=== PATIENT | female | born 1990 | race Two or more races ===

== ENCOUNTER 2018-10-14 16:43 | Emergency (ER) | payer MEDICAID, OTHER ==
[~2018-10-14] VITALS: Ht 165.1 cm; Wt 59.0 kg
[2018-10-14 18:04] LABS: Urine Bacteria FEW /hpf (None Seen); Urine Blood Negative /uL (Negative); Urine Mucus FEW (None Seen); Urine Specific Gravity 1.033 (1.001-1.035); Urine WBC 22 /hpf (0 - 5)
[2018-10-14 19:15] LABS: Partial Thromboplastin Time 27.2 sec (23.78-33.04); Prothrombin Time 10.7 sec (9.27-12.13)
[2018-10-14 19:19] LABS: Basophils # (auto) 0 uL; Basophils % (auto) 0.4 % (0.0-2.0); Eosinophils # (auto) 0.1 uL; Hemoglobin 12.2 g/dL (12.2-16.2); Neutrophils # (auto) 5.1 uL
[2018-10-14 19:21] LABS: Eosinophils % (auto) 0.9 % (0.0-7.0); Hematocrit 38.3 % (36.0-46.0); Lymphocytes # (auto) 1.8 uL; Lymphocytes % (auto) 23.5 % (10.0-50.0); Mean Corpuscular Hgb Conc. 31.9 g/dL (32.0-36.0); Mean Corpuscular Volume 81.6 fL (80.0-100.0); Monocytes # (auto) 0.5 uL; Monocytes % (auto) 7.2 % (0.0-12.0); Platelet Count (auto) 338 10^3/uL (140-450); Red Blood Cells 4.69 10^6/uL (4.0-5.20); Red Cell Distribution Width 16.5 % (11.8-14.3); White Blood Cell 7.5 10^3/uL (4.4-10.8)
[2018-10-14 19:22] LABS: Albumin 4.1 g/dL (3.4-5.0); Calcium 8.7 mg/dL (8.5-10.1); Potassium 3.9 mmol/L (3.5-5.1)
[2018-10-14 19:25] LABS: BUN/Creatinine Ratio 15.4; Bilirubin, Total 0.9 mg/dL (0.2-1.0); Total Protein 7.9 g/dL (6.4-8.2)
[2018-10-14] MEDS ORDERED: SODIUM CHLORIDE 0.9% 1,000 ML IVB ONE (21:45)
[2018-10-14] MEDS ORDERED: PROMETHAZINE HCL 25 MG/ML 1ML IV PRN (21:45)
[2018-10-14] MEDS ORDERED: KETOROLAC TROMETH 30 MG/ML 1ML VIAL IV ONE (21:45)
[2018-10-14] MEDS ORDERED: SODIUM CHLORIDE 0.9% 1,000 ML IV ONE (22:45)
[2018-10-14] MEDS ORDERED: ONDANSETRON ODT 4 MG TAB PO ONE (22:45)
[2018-10-14] MEDS ORDERED: PROMETHAZINE HCL 25 MG/ML 1ML IV ONE (22:45)
[2018-10-15 01:05] VITALS: BP 126/62
== END 2018-10-15 01:25 | disposition home or self-care (01) ==
LOC: ER 16:48
DX: N20.0 Calculus of kidney (principal); N39.0 Urinary tract infection, site not specified
CPT/HCPCS: 36415; 74176; 80053; 81001; 84702; 85025; 85610; 85730; 94761; 96361; 96374; 96375; 99284; J1885; J2550; J7030

== ENCOUNTER 2024-07-27 13:20 | Emergency (ER) | payer MEDICAID ==
[~2024-07-27] VITALS: Ht 165.1 cm; Wt 75.0 kg
[2024-07-27 14:22] VITALS: BP 116/69; PULSE 87; RESP 18; TEMP 98.3; O2SAT 100
--- NOTE | 2024-07-27 14:36 | ED.PDOC ---
Back pain HPI HPI Comments A 33 YEAR OLD FEMALE PRESENTS TO THE ED WITH COMPLAINT OF LOWER BACK PAIN THAT RADIATES DOWN RIGHT LEG. PATIENT STATES SHE HAS A HISTORY OF CHRONIC LOWER BACK PAIN DUE TO AN EPIDURAL INJECTION AND BULGING DISC 1 YEAR AGO, AND HAS BEEN EXPERIENCING LOWER BACK PAIN THAT RADIATES DOWN HER RIGHT LEG FOR THE PAST 1 WEEK. PATIENT DENIES SADDLE ANESTHESIA, URINARY INCONTINENCE, BOWEL INCONTINENCE, FEVER, CHILLS, SHORTNESS OF BREATH, CHEST PAIN, ABDOMINAL PAIN, NAUSEA, VOMITING, HEADACHE, OR OTHER COMPLAINTS. NO OTHER SYMPTOMS OR MODIFYING FACTORS AT THIS TIME. PATIENT IS ALERT, ORIENTED X 4, AND HAS STEADY GAIT. Chief Complaint: Back Pain Time Seen by MD: 13:21 Primary Care Provider: [facility] Notes: Nurses Notes, Medications, Allergies Allergies: Coded Allergies: NO KNOWN ALLERGIES (Unverified , 10/14/18) Home Meds Active Scripts Tramadol HCl (Tramadol HCl) 50 Mg Tab, 50 MG PO BID, #20 TAB Prov:ANAYELI PAINTING 07/27/24 Prednisone (Prednisone) 20 Mg Tab, 40 MG PO DAILY, #20 TAB Prov:ANAYELI PAINTING 07/27/24 Information Source: Patient Mode of Arrival: Wheelchair Timing: Days Duration: Since onset, Days Location of Back pain: (B) Lumbar Radiates to: Anterior: (R) Buttocks, (R) Calf, (R) Thigh Radiates to: Posterior: (R) Buttocks, (R) Calf, (R) Thigh Radiates to: Medial: (R) Buttocks, (R) Calf, (R) Thigh Radiates to: Lateral: (R) Buttocks, (R) Calf Severity: Moderate Prehospital treatment: None Quality: Aching, Burning, Cramping Onset: Spontaneous History of: Chronic Back Pain Modifying Factors: Movement Associated signs and symptoms: None Past Medical History Past Medical History (Other): CHRONIC LOWER BACK PAIN/DDD Surgical History: Denies all surgeries GENERAL WORKER History: No Pertinent GENERAL WORKER History Family History Family History: No family hx of HTN Social History Smoker: Non-Smoker Alcohol: Denies ETOH Use Drugs: Denies Drug Use Lives In: Home Constitutional: denies: chills, diaphoresis, fatigue, fever, malaise, sweats, weakness, others EENTM: denies: blurred vision, double vision, ear bleeding, ear discharge, ear drainage, ear pain, ear ringing, eye pain, eye redness, hearing loss, mouth pain, mouth swelling, nasal discharge, nose bleeding, nose congestion, nose pain, photophobia, tearing, throat pain, throat swelling, voice changes, others Respiratory: denies: cough, hemoptysis, orthopnea, SOB at rest, shortness of breath, SOB with excertion, stridor, wheezing, others Cardiovascular: denies: chest pain, dizzy spells, diaphoresis, Dyspnea on exertion, edema, irregular heart beat, left arm pain, lightheadedness, palpitations, PND, syncope, others Gastrointestinal: denies: abdomen distended, abdominal pain, blood streaked bowels, constipated, diarrhea, dysphagia, difficulty swallowing, hematemesis, melena, nausea, poor appetite, poor fluid intake, rectal bleeding, rectal pain, vomiting, others Genitourinary: denies: abnormal vagina bleeding, burning, dyspareunia, dysuria, flank pain, frequency, hematuria, incontinence, pain, , vagina discharge, urgency, others Neurological: denies: dizziness, fainting, headache, left sided numbness, left sided weakness, numbness, paresthesia, pre-existing deficit, right sided numbne ss, right sided weakness, seizure, speech problems, tingling, tremors, weakness, others Musculoskeletal: reports: back pain (LOWER BACK PAIN THAT RADIATES DOWN RIGHT LEG), muscle pain; denies: gout, joint pain, joint swelling, muscle stiffness, neck pain, others Integumetry: denies: bruises, change in color, change in hair/nails, dryness, laceration, lesions, lumps, rash, wounds, others Allergic/Immunocompromised: denies: Difficulty Healing, Frequent Infections, Hives, Itching, others Hematologic/Lymphatic: denies: anemia, blood clots, easy bleeding, easy bruising, swollen glands, others Endocrine: denies: excessive hunger, excessive sweating, excessive thirst, excessive urination, flushing, intolerance to cold, intolerance to heat, u nexplained weight gain, unexplained weight loss, others Psychiatric: denies: anxiety, bipolar disorder, depression, hopeless, panic disorder, schizophrenia, sleepless, suicidal, others All Other Systems: Reviewed and Negative Physical Exam General Appearance: No Apparent Distress, Normal, Other (ANXIOUS ) HEENT: Normal ENT Inspection, PERRL/EOMI, Pharynx Normal, TMs Normal Neck: Full Range of Motion, Non-Tender, Normal, Normal Inspection Respiratory: Chest Non-Tender, Lungs Clear, No Accessory Muscle Use, No Respiratory Distress, Normal Breath Sounds Cardiovascular: No Edema, No JVD, No Murmur, No Gallop, Normal Peripheral Pulses, Regular Rate/Rhythm Breast Exam: Deferred Gastrointestinal: No Organomegaly, Non Tender, No Pulsatile Mass, Normal Bowel Sounds, Soft Genitalia: Deferred Pelvic: Deferred Rectal: Deferred Extremities: No calf tenderness, Normal capillary refill, Normal inspection, Normal range of motion, Non-tender, No pedal edema Musculoskeletal : Location: Bilateral Extremity Location: Back Apperance: Tenderness: Moderate (MUSCLE SPASM ON LOWER BACK, NO BONY TENDERNESS, SWELLING AND DEFORMITY. ) Neurologic: Alert, solutions sales consultant II-XII nml as Tested, No Motor Deficits, Normal Affect, Normal Mood, No Sensory Deficits Cerebellar Function: Normal Reflexes: Normal Skin: Dry, Normal Color, Warm Peripheral Pulses: 2+ carotid (R), 2+ carotid (L), 2+ dorsalis pedis (R), 2+ dorsalis pedis (L) Lymphatic: No Adenopathy Was a procedure done? Was a procedure done?: No Back Pain Differential Dx Differential Diagnosis: DJD, Musculoskeletal Pain, Strain Other Differential Diagnosis DDD, LUMBAR RADICULOPATHY X-Ray, Labs, Meds, VS Vital Signs Date Time Temp Pulse Resp B/P (MAP) Pulse Ox O2 Delivery O2 Flow Rate FiO2 07/27/24 14:22 87 18 100 Room Air 07/27/24 14:22 98.3 87 18 116/69 (85) 100 98.3 07/27/24 13:48 98.3 87 18 116/69 (85) 100 Current Medications Medications (Trade) Dose Ordered Sig/Yg Route Start Time Stop Time Status Last Admin Ketorolac Tromethamine (Toradol Injection) 60 mg ONCE ONCE IM 07/27/24 14:30 07/27/24 14:31 DC 07/27/24 14:38 Acetaminophen/ Hydrocodone Bitart (Bucklin 10/325MG Tab) 1 tab ONCE ONCE PO 07/27/24 14:30 07/27/24 14:31 DC 07/27/24 14:38 X-Ray, Labs, Meds, VS Comment EXTERNAL MEDICAL RECORDS REVIEWED: [NONE] INDEPENDENT HISTORIANS: [NONE] SOCIAL DETERMINANTS OF HEALTH: [NONE] LABS ORDERED: NONE REVIEWED AND INTERPRETED RESULTS: NONE IMAGING ORDERED: NONE BASED ON THE PATIENT'S PERSISTENCE OF SYMPTOMS, THE PATIENT SOUGHT OUT ED CONSULT. BASED ON MY PHYSICAL EXAMINATION AND PATIENT'S HISTORY OF CHRONIC BACK PAIN, THERE IS NO NEW INJURY TO THE PATIENT'S BACK. THE PATIENT DENIES ANY NUMBNESS, WEAKNESS, TINGLING SENSATION, URINARY/BOWEL INCONTINENCE. THERE ARE NO SIGNS AND SYMPTOMS OF CAUDA EQUINA. THE PATIENT STATES THAT THE PAIN IS THE SAME WHEN THEY HAVE BACK PAIN FLARE-UP AND THAT THEY ONLY NEED PAIN MEDICATION IN THE ER. AT THIS POINT, THERE IS NO INDICATION FOR ANY IMAGING. THE PATIENT WAS ADVISED TO FOLLOW UP WITH ORTHO SPECIALIST FOR THEIR CHRONIC LOWER BACK PAIN AND PAIN MANAGEMENT DOCTOR FOR PAIN CONTROL. PATIENT WAS GIVEN TORADOL 60MG IM AND NORCO 10/325MG PO FOR PAIN MEDICATION. OVERALL PATIENT'S VITAL SIGNS ARE STABLE AND THE PATIENT WILL BE DISCHARGED HOME. TREATMENTS ORDERED: TORADOL 60 MG IM, NORCO 10/325 MG P.O. PROCEDURES PERFORMED: NONE CRITICAL CARE TIME: NONE I HAVE DISCUSSED THE PATIENT WITH THE ATTENDING PHYSICIAN DR. RUIZ AND HE AGREES WITH THE PATIENT'S PLAN OF CARE AND DISPOSITION. BASED ON HISTORY OF PRESENT ILLNESS, AND PHYSICAL EXAM, PATIENT WILL BE DISCHARGED HOME. DISCUSSED PLAN FOR DISCHARGE HOME WITH RX [ULTRAM AND PREDNISONE]. MEDICATION WARNINGS GIVEN. SHARED DECISION MAKING: PATIENT INSTRUCTED TO FOLLOW UP WITH PRIMARY CARE PROVIDER IN 1-2 DAYS FOR RE-EVALUATION OF SYMPTOMS. PATIENT VERBALIZES UNDERSTANDING TO RETURN TO ED FOR NEW OR WORSENING SYMPTOMS OR IF FOLLOW UP WITH PCP CANNOT BE OBTAINED. PATIENT FEELS COMFORTABLE GOING HOME AT THIS TIME. ALL QUESTIONS ADDRESSED AT TIME OF DISCHARGE. Time of 1ST Reevaluation: 15:00 Reevaluation 1ST: Improved Patient Education/Counseling: Diagnosis, Treatment, Need For Follow Up Family Education/Counseling: Diagnosis, Treatment, Need For Follow Up Medical Screening: No EMC Exist At This Time Departure 1 Departure Time of Disposition: 15:00 Impression: Primary Impression: Acute exacerbation of chronic low back pain Additional Impression: Pain management Disposition: 01 HOME / SELF CARE / HOMELESS Condition: Stable Additional Instructions: FOLLOW-UP WITH PCP IN 1 TO 2 DAYS. TAKE MEDICATIONS PRESCRIBED. RETURN TO ED FOR ANY NEW OR WORSENING SYMPTOMS. e-Prescriptions Tramadol HCl (Tramadol HCl) 50 Mg Tab 50 MG PO BID, #20 TAB Prov: ANAYELI PAINTING 07/27/24 Prednisone (Prednisone) 20 Mg Tab 40 MG PO DAILY, #20 TAB Prov: ANAYELI PAINTING 07/27/24 Discharged With: Self, Spouse Critical Care Note Critical Care Time?: No Stability Stability form required: No I personally scribed for ANAYELI PAINTING ([email or web address]) on 07/27/24 at 14:35. Electronically submitted by Avery Aguilar ([email or web address]). I personally scribed for ANAYELI PAINTING ([email or web address]) on 07/27/24 at 14:43. Electronically submitted by Avery Aguilar ([email or web address]). ANAYELI PAINTING Jul 27, 2024 14:35
[2024-07-27] MEDS: KETOROLAC TROMETH 60MG/2ML VIAL IM ONE (14:38)
[2024-07-27] MEDS: HYDROcodone-ACET 10/325MG TAB PO ONE (14:38)
[2024-07-27] MEDS ORDERED: PRED20TA2 PO (14:46)
[2024-07-27] MEDS ORDERED: TRAM-626 PO (14:46)
== END 2024-07-27 14:55 | disposition home or self-care (01) ==
LOC: ER 13:20
DX: G89.29 Other chronic pain (principal); M54.50 Low back pain, unspecified; Z79.52 Long term (current) use of systemic steroids; Z79.899 Other long term (current) drug therapy
CPT/HCPCS: 96372; 99283; J1885

== ENCOUNTER 2025-05-18 02:24 | Inpatient (IN) | payer MEDICAID ==
[~2025-05-18] VITALS: Ht 167.6 cm; Wt 79.7 kg
[~2025-05-18 02:24] MED LIST: PRED20TA2 PO; TRAM-626 PO
--- NOTE | 2025-05-18 02:43 | ED.PDOC ---
History of Present Illness HPI Comments 34-year-old female who came to ER for vaginal bleeding. Patient has been having present on bleeding for a month, constant, daily vaginal bleeding consuming 4 pads per day with the occasional clots. One-week ago patient has started experiencing dizziness as well, and few hours ago she has started having left lower quadrant abdominal pain, "cloudy" vision and sensation of "coldness". Patient has not sought consult regarding this vaginal bleeding that lasted a month. Patient denies having prior vaginal bleeding lasting this long. Denies any possibility fo REVIEW OF SYSTEMS: General: No fever, no chills, or fatigue HEENT: No sore throat, no earache, no congestion, no neck pain. Cardiac: No chest pain. No palpitations. Lungs: No shortness of breath, no cough. GI: No nausea, no vomiting, no diarrhea, no constipation, (+) abdominal pain : No dysuria, frequency, or urgency. No hematuria. (+) vaginal bleeding Musculoskeletal: No joint pain , no joint swelling, no extremity edema. Skin: No rash, no itching. Neuro: No headache, (+) dizziness, no weakness EXAM: General: Awake, alert and oriented. No acute distress. Skin: Skin in warm, dry and intact. Appropriate color for ethnicity. HEENT: The head is normocephalic and atraumatic. Conjunctivae are clear without exudates or hemorrhage. Sclera is non-icteric. EOM are intact. No signs of nystagmus. Eyelids are normal in appearance without swelling or lesions. Oral mucosa is pink and moist Neck: The neck is supple with normal range of motion. No JVD. Cardiac: Heart rate and rhythm are normal. No murmurs, gallops, or rubs are auscultated. Respiratory: No signs of respiratory distress. Lung sounds are clear in all lobes bilaterally without rales, rhonchi, or wheezes. Abdominal: Abdomen is soft, non-tender without distention. Bowel sounds are present and normoactive in all four quadrants. Extremities: Upper and lower extremities are atraumatic in appearance without deformity or edema. Neurological: The patient is awake, alert and oriented to person, place, and time with normal speech. Speech is clear. There is no facial asymmetry. Psychiatric: Appropriate mood and affect. Good judgement and insight Chief Complaint: Vaginal Bleed Time Seen by MD: 02:43 Primary Care Provider: [facility] Notes: Nurses Notes Allergies: Coded Allergies: NO KNOWN ALLERGIES (Unverified , 10/14/18) Home Meds Active Scripts Tramadol HCl (Tramadol HCl) 50 Mg Tab, 50 MG PO BID, #20 TAB Prov:ANAYELI PAINTING 07/27/24 Prednisone (Prednisone) 20 Mg Tab, 40 MG PO DAILY, #20 TAB Prov:ANAYELI PAINTING 07/27/24 Information Source: Patient Mode of Arrival: Ambulatory Past Medical History PAST MEDICAL HISTORY: Anemia Surgical History: Denies all surgeries SCIENTIFIC SYSTEMS ANALYST History: No Pertinent SCIENTIFIC SYSTEMS ANALYST History Family History Family History: No family hx of HTN Social History Smoker: Non-Smoker Alcohol: Denies ETOH Use Drugs: Denies Drug Use Lives In: Home Was a procedure done? Was a procedure done?: No Differential Dx Considerations may include: Anemia, metromenorrhagia, uterine fibroids, endometriosis X-Ray, Labs, Meds, VS Vital Signs Date Time Temp Pulse Resp B/P (MAP) Pulse Ox O2 Delivery O2 Flow Rate FiO2 05/18/25 11:01 98.7 80 16 131/73 (92) 98 98.7 05/18/25 07:41 98.5 60 16 158/86 (110) 98 98.5 05/18/25 05:19 98.2 72 19 117/74 (88) 98 98.2 05/18/25 05:19 72 19 98 Room Air 05/18/25 02:26 98.3 90 16 142/74 98 98.3 Lab Test 05/18/25 03:57 05/18/25 02:39 Range/Units Urine Color Light-yellow Yellow Urine Clarity Clear Clear Urine pH 6.5 5.0-9.0 Urine Specific Bascom 1.020 1.001-1.035 Urine Protein Negative Negative Urine Ketones Negative Negative Urine Blood 3+ H Negative /uL Urine Nitrite Negative Negative Urine Bilirubin Negative Negative Urine Urobilinogen Normal Negative mg/dL Urine Leukocyte Esterase Negative Negative /uL Urine RBC 104 0 - 4 /hpf Urine Microscopic WBC 1 0-5 /HPF Urine Squamous Epithelial Cells Few <5 /hpf Urine Bacteria None seen None Seen /hpf Urine Glucose Normal Normal mg/dL Urine Test Negative Negative White Blood Count 7.4 4.4-10.8 10^3/uL Red Blood Count 4.41 4.0-5.20 10^6/uL Hemoglobin 12.0 L 12.2-16.2 g/dL Hematocrit 36.9 36.0-46.0 % Mean Corpuscular Volume 83.7 80.0-100.0 fL Mean Corpuscular Hemoglobin 27.3 L 28.0-32.0 pg Mean Corpuscular Hemoglobin Concent 32.6 32.0-36.0 g/dL Red Cell Distribution Width 15.6 H 11.8-14.3 % Platelet Count 300 140-450 10^3/uL Mean Platelet Volume 7.2 6.9-10.8 fL Neutrophils (%) (Auto) 59.9 37.0-80.0 % Lymphocytes (%) (Auto) 30.8 10.0-50.0 % Monocytes (%) (Auto) 6.6 0.0-12.0 % Eosinophils (%) (Auto) 2.0 0.0-7.0 % Basophils (%) (Auto) 0.7 0.0-2.0 % Neutrophils # (Auto) 4.5 1.6-8.6 10 ^3/uL Lymphocytes # (Auto) 2.3 0.4-5.4 10 ^3/uL Monocytes # (Auto) 0.5 0-1.3 10 ^3/uL Eosinophils # (Auto) 0.1 0-0.8 10 ^3/uL Basophils # (Auto) 0.1 0-0.2 10 ^3/uL Nucleated Red Blood Cells 0.0 % Sodium Level 141 136-145 mmol/L Potassium Level 3.8 3.5-5.1 mmol/L Chloride Level 105 98-107 mmol/L Carbon Dioxide Level 28 20-31 mmol/L Anion Gap 8 5-15 Blood Urea Nitrogen 8 L 9-23 mg/dL Creatinine 0.61 0.550-1.02 mg/dL Glomerular Filtration Rate Calc 119 >90 mL/min BUN/Creatinine Ratio 13.1 10.0-20.0 Serum Glucose 94 74-106 mg/dL Calcium Level 9.2 8.7-10.4 mg/dL Magnesium Level 2.1 1.6-2.6 mg/dL Current Medications Medications (Trade) Dose Ordered Sig/Yg Route Start Time Stop Time Status Last Admin Acetaminophen (Tylenol Tablet Or Capsule) 1,000 mg ONCE ONCE PO 05/18/25 03:30 05/18/25 03:31 DC 05/18/25 03:54 Ketorolac Tromethamine (Toradol Injection) 30 mg ONCE ONCE IM 05/18/25 05:45 05/18/25 05:46 DC 05/18/25 05:55 Acetaminophen/ Hydrocodone Bitart ([place] 10/325MG Tab) 1 tab ONCE ONCE PO 05/18/25 09:45 05/18/25 09:46 DC 05/18/25 09:57 Time of 1ST Reevaluation: 02:37 Reevaluation 1ST: Unchanged Patient Education/Counseling: Need For Follow Up Family Education/Counseling: No Family Present SEPSIS Sepsis Screen Date sepsis recognized/suspect: May 18, 2025 Time Sepsis recognized/suspect: 227 Recent Procedure: No On Antibiotic Therapy: No Respiratory Rate >20: No Heart Rate >90: No Temp<36 C (96.8 F) or >38.3 C: No SBP <90 or MAP <65 mmHG: No New Acute Mental Status Change: No Is the patient on CPAP, BIPAP,: No Physician Orders Urine (05/18/25 02:30) Electrocardigram (05/18/25 03:09) Orthostatic Vital Signs (05/18/25 ) Pelvic (05/18/25 05:10) Transvaginal Us Non Ob (05/18/25 ) Ct Ab Pel Wo Con-No Oral Or Iv (05/18/25 09:41) Vital Signs Date Time Temp Pulse Resp B/P (MAP) Pulse Ox O2 Delivery O2 Flow Rate FiO2 05/18/25 11:01 98.7 80 16 131/73 (92) 98 98.7 05/18/25 07:41 98.5 60 16 158/86 (110) 98 98.5 05/18/25 05:19 98.2 72 19 117/74 (88) 98 98.2 05/18/25 05:19 72 19 98 Room Air 05/18/25 02:26 98.3 90 16 142/74 98 98.3 Laboratory Tests Test 05/18/25 02:39 White Blood Count 7.4 10^3/uL (4.4-10.8) Medications Medications Dose Ordered Sig/Yg Route Start Time Stop Time Status Last Admin Dose Admin Acetaminophen 1,000 mg ONCE ONCE PO 05/18/25 03:30 05/18/25 03:31 DC 05/18/25 03:54 Acetaminophen/ Hydrocodone Bitart 1 tab ONCE ONCE PO 05/18/25 09:45 05/18/25 09:46 DC 05/18/25 09:57 Ketorolac Tromethamine 30 mg ONCE ONCE IM 05/18/25 05:45 05/18/25 05:46 DC 05/18/25 05:55 Departure 1 Departure Time of Disposition: 13:07 (Patient presented with abdominal pain that was concerning for possible appendicits, gastritis, cholecystitis, colitis, gastroenteritis, sbo, or orther possible surgical emergency. Data: 1. I ordered and reviewed the result of at least 3 labs including a CBC, BMP, and Urinalysis. 2. I independently interpreted the following tests: CT Abdomen and Pelvis is concerning for benign abdomen .Risk:This patient has a high risk of morbidity due to further diagnostic testing or treatment and may suffer from an acute abdominal process disorder. Workup reveals intractable abdominal pain and patient should be admitted for further workup. and possible expert consultation. ) Impression: Primary Impression: Intractable abdominal pain Additional Impressions: Dizziness Abnormal uterine bleeding Disposition: ADMITTED INPATIENT Admit to: Med Surg Condition: Serious Additional Instructions: ED DISCHARGE INSTRUCTIONS Instructions: Please read all instructions provided in this packet carefully. Although you have been discharged from the Emergency Department, this does not mean that you have a "clean bill of health". No definitive diagnosis for your symptoms has been made today. It is possible that you are in the process of developing a serious illness. This is why you must return to the ED without fail if any new or worsening symptoms (especially if your symptoms include chest pain, trouble breathing, abdominal pain, fever, headache, confusion, trouble seeing, or trouble walking) It is also very important that you see a primary care provider (PCP) within the next 3 days to follow up. If you are unable to get an appointment, return to the ED for re-evaluation. Vaginal Bleeding (Nonpregnancy): Care Instructions Overview It's common to have bleeding or spotting between periods. Lots of things can cause it. You may bleed because of hormone problems, stress, or ovulation. Fibroids and IUDs (intrauterine devices) can also cause bleeding. If your bleeding or spotting is caused by one of these things and isn't heavy or doesn't happen often, you probably don't need to worry. But in rare cases, infection, cancer, or other serious conditions can cause bleeding. So you may need more tests to find the cause of your bleeding. The doctor has checked you carefully, but problems can develop later. If you notice any problems or new symptoms, get medical treatment right away. Follow-up care is a marroquin part of your treatment and safety. Be sure to make and go to all appointments, and call your doctor if you are having problems. It's also a good idea to know your test results and keep a list of the medicines you take. How can you care for yourself at home? Take pain medicines exactly as directed. If the doctor gave you a prescription medicine for pain, take it as prescribed. If you are not taking a prescription pain medicine, ask your doctor if you can take an [id number]-[id number] medicine. Do not take aspirin, which may make bleeding worse. If your doctor prescribed control pills for your bleeding, take them as directed. Eat foods that are high in iron and vitamin C. Foods high in iron include red meat, shellfish, eggs, beans, and leafy green vegetables. Foods high in vitamin C include citrus fruits, tomatoes, and broccoli. Ask your doctor if you need to take iron pills or a multivitamin. Ask your doctor when it is okay to have sex. When should you call for help? Call 911 anytime you think you may need emergency care. For example, call if: You passed out (lost consciousness). Call your doctor now or seek immediate medical care if: You have severe vaginal bleeding. You are dizzy or lightheaded, or you feel like you may faint. You have new or worse belly or pelvic pain. Watch closely for changes in your health, and be sure to contact your doctor if: Your bleeding gets worse. You think you might be . You do not get better as expected. Credits for Vaginal Bleeding (Nonpregnancy): Care Instructions Current as of: September 27, 2023 Author: eleni Staff Clinical Review Board All [employer] education is reviewed by a team that includes physicians, nurses, advanced practitioners, registered dieticians, and other healthcare professionals. Lightheadedness or Faintness: Care Instructions Overview Lightheadedness is a feeling that you are about to faint or "pass out." You do not feel as if you or your surroundings are moving. It is different from vertigo, which is the feeling that you or things around you are spinning or tilting. Lightheadedness usually goes away or gets better when you lie down. If lightheadedness gets worse, it can lead to a fainting spell. It is common to feel lightheaded from time to time. It may be caused by many things. These include allergies, dehydration, illness, and medicines. Lightheadedness usually is not caused by a serious problem. It often is caused by a short-lasting drop in blood pressure and blood flow to your head that occurs when you get up too quickly from a seated or lying position. Follow-up care is a marroquin part of your treatment and safety. Be sure to make and go to all appointments, and call your doctor if you are having problems. It's also a good idea to know your test results and keep a list of the medicines you take. How can you care for yourself at home? Lie down for 1 or 2 minutes when you feel lightheaded. After lying down, sit up slowly and remain sitting for 1 to 2 minutes before slowly standing up. Avoid movements, positions, or activities that have made you lightheaded in the past. Get plenty of rest, especially if you have a cold or flu, which can cause lightheadedness. Make sure you drink plenty of fluids, especially if you have a fever or have been sweating. Do not drive or put yourself and others in danger while you feel lightheaded. When should you call for help? Call 911 anytime you think you may need emergency care. For example, call if: You passed out (lost consciousness). You have symptoms of a stroke. These may include: Sudden numbness, tingling, weakness, or loss of movement in your face, arm, or leg, especially on only one side of your body. Sudden vision changes. Sudden trouble speaking. Sudden confusion or trouble understanding simple statements. Sudden problems with walking or balance. A sudden, severe headache that is different from past headaches. You have symptoms of a heart attack. These may include: Chest pain or pressure, or a strange feeling in the chest. Sweating. Shortness of breath. Nausea or vomiting. Pain, pressure, or a strange feeling in the back, neck, jaw, or upper belly or in one or both shoulders or arms. Lightheadedness or sudden weakness. A fast or irregular heartbeat. After you call 911, the wastewater treatment plant operator may tell you to chew 1 adult-strength or 2 to 4 low-dose aspirin. Wait for an ambulance. Do not try to drive yourself. Watch closely for changes in your health, and be sure to contact your doctor if: Your lightheadedness gets worse or does not get better with home care. Credits for Lightheadedness or Faintness: Care Instructions Current as of: December 28, 2023 Author: eleni Staff Clinical Review Board All [employer] education is reviewed by a team that includes physicians, nurses, advanced practitioners, registered dieticians, and other healthcare professionals. Critical Care Note Critical Care Time?: No Stability Stability form required: No Heart Score Heart Score: Heart Score Response (Comments) Value History N/A 0 EKG N/A 0 Age N/A 0 Risk Factors N/A 0 Troponin N/A 0 Total 0 I personally scribed for ROMERO BURRIS MD ([email or web address]) on 05/18/25 at 02:43. Electronically submitted by Gideon Cardenas ([email or web address]). I personally scribed for ROMERO BURRIS MD ([email or web address]) on 05/18/25 at 05:45. Electronically submitted by Gideon Cardenas ([place]). ROMERO BURRIS MD May 18, 2025 02:43 SOM BOX MD May 18, 2025 13:07
[2025-05-18 02:51] LABS: Hemoglobin 12.0 g/dL (12.2-16.2); Nucleated Red Blood Cells % 0.0 %
[2025-05-18 02:53] LABS: Hematocrit 36.9 % (36.0-46.0); Mean Corpuscular Hemoglobin 27.3 pg (28.0-32.0); Mean Corpuscular Volume 83.7 fL (80.0-100.0)
[2025-05-18 03:38] LABS: Chloride 105 mmol/L (98-107); Potassium 3.8 mmol/L (3.5-5.1); Sodium 141 mmol/L (136-145)
[2025-05-18 03:39] LABS: Anion Gap 8 (5-15); Calcium 9.2 mg/dL (8.7-10.4); Carbon Dioxide 28 mmol/L (20-31)
[2025-05-18 03:44] LABS: BUN/Creatinine Ratio 13.1 (10.0-20.0); Glucose 94 mg/dL (74-106)
[2025-05-18 03:45] LABS: Magnesium 2.1 mg/dL (1.6-2.6)
[2025-05-18 03:49] LABS: Blood Urea Nitrogen 8 mg/dL (9-23)
[2025-05-18] MEDS: ACETAMINOPHEN 500 MG TAB or CAP PO ONE (03:54)
[2025-05-18 04:40] LABS: Urine Protein, UAD Negative (Negative)
[2025-05-18] MEDS: KETOROLAC TROMETH 30 MG/ML 1ML VIAL IM ONE (05:55)
--- NOTE | 2025-05-18 08:51 | DVH ---
Pelvic ultrasound HISTORY: Left pelvic pain, Heavy Vaginal Bleeding TECHNIQUE: 2-D real-time ultrasound was performed with sagittal and axial images submitted for evaluation. Images were obtained transabdominally and transvaginally. FINDINGS: Uterus measures 7 x 5.9 x 5.4 cm with an endometrial thickness of 10 mm. There are nabothian cysts in the cervix. Right ovary 3.6 x 2.1 x 1.8 cm. 5-6 mm cyst in the right ovary Left ovary 3.5 x 2 x 3.1 cm. 2 x 1.8 x 1.3 cm cyst in the left ovary There is flow to both ovaries. There is a minimal amount of free fluid in the cul-de-sac. IMPRESSION: 1. Normal-appearing uterus and ovaries
[2025-05-18] MEDS: HYDROcodone-ACET 10/325MG TAB PO ONE (09:57)
--- NOTE | 2025-05-18 10:17 | DVH ---
EXAM: CT CT AB PEL WO CON-NO ORAL OR IV HISTORY: llq pain Comparison Study: None Exam Date: 05/18/2025 09:48 AM Radiation Dose Information: CT Dose: CTDI volume is 11.6 mGy. Dose-length product is 571.79 mGy*cm TECHNIQUE: Multidetector CT of the abdomen and pelvis was performed. Imaging was performed without IV contrast. Axial, coronal and sagittal multiplanar reformats were obtained from the axial data set by the technologist. FINDINGS: Lack of intravenous contrast compromises evaluation of perfusion and for isodense lesions. Lower chest: Clear. Liver: Unremarkable Biliary system: Unremarkable Spleen: Unremarkable Pancreas: Unremarkable. Adrenals: Unremarkable. Kidneys and ureters: No hydronephrosis. No renal or ureteral calculi. Bowel: No obstruction. Normal appendix. Bladder: Unremarkable Reproductive organs: No abnormal mass. Lymph nodes: Unremarkable. Peritoneum: Unremarkable Vessels: Patency not evaluated on this noncontrast study. Bones and soft tissue: No aggressive osseous lesion IMPRESSION: No acute CT findings in the abdomen and pelvis.
--- NOTE | 2025-05-18 14:09 | DVHHP2 ---
History of Present Illness Reason for Visit: Vaginal bleed History of Present Illness The patient is a 34 years old female with past medical history of anemia who presented to [facility] ED with complaint vaginal bleeding. Patient reports that she has been having present bleeding for 1 month, 1 week, constant, daily, consuming 4 pads per day with the occasional clots. Patient has started experiencing symptoms of dizziness, left lower quadrant abdominal pain, "cloudy" vision and sensation of "coldness". Patient was seen and evaluated in the ED, laboratory data shows WBC 7.4, hemoglobin 12.0, hematocrit 36.9, platelets 300, sodium 141, potassium 3.8, BUN eight, creatinine 0.61, GFR 119, glucose 94, calcium 9.2, blood pressure 118/79, heart rate 70, temperature 98.8 F, O2 saturation 97% on room air. Abdomen/pelvis CT showed no acute findings. Please see medication orders section in the computer. On my assessment, patient denied chest pain, no dizziness, headache, diaphoresis, shortness of breaths, no diarrhea, nausea, vomiting, fever, no chills. Patient was admitted for further evaluation and medical management. Past Medical History Anemia Past Surgical History Denies all surgeries Family History Reviewed, noncontributory to the management of this case. Past Social History The patient lives at home, denies smoking, alcohol or illicit drugs abuse. Review of Systems Constitutional: Yes: Weakness; No: Fever, Chills, Sweats, Malaise, Other Eyes: No: Pain, Vision change, Conjunctivae inflammation, Eyelid inflammation, Other, Redness ENT: No: Ear pain, Ear discharge, Nose pain, Nose discharge, Nose congestion, Mouth pain, Mouth swelling, Throat pain, Throat swelling, Other Respiratory: No: Cough, Dry, Shortness of breath, SOB with excertion, Wheezing, Hemoptysis, Pleuritic Pain, Sputum, Wheezing, Other Cardiovascular: No: Chest Pain, Palpitations, Orthopnea, Paroxysmal Noc. Dyspnea, Edema, Lt Headedness, Other Gastrointestinal: No: Nausea, Vomiting, Abdominal Pain, Diarrhea, Constipation, Melena, Hematochezia, Other Genitourinary: No Dysuria, No Frequency, No Incontinence; Hematuria; No Retention; Other (Vaginal bleed) Musculoskeletal: No: other, neck pain, shoulder pain, arm pain, back pain, hand pain, leg pain, foot pain Skin: No: Rash, Lesions, Jaundice, Bruising, Other Neurological: No: Weakness, Numbness, Incoordination, Change in speech, Confusion, Seizures, Other Allergies: Coded Allergies: NO KNOWN ALLERGIES (Unverified , 10/14/18) Medications Current Medications Medications Dose Ordered Sig/Yg Route Start Time Stop Time Status Last Admin Dose Admin Sodium Chloride 10 ml Q8HR IV 05/18/25 14:00 UNV Acetaminophen/ Hydrocodone Bitart 1 tab Q4HP PRN PO 05/18/25 14:00 UNV Ondansetron HCl 4 mg Q4HP PRN IV 05/18/25 14:00 UNV Docusate Sodium 100 mg BIDPRN PRN PO 05/18/25 14:00 UNV Acetaminophen 650 mg Q6HP PRN PO 05/18/25 14:00 UNV Exam Vital Signs Vital Signs Date Time Temp Pulse Resp B/P (MAP) Pulse Ox O2 Delivery O2 Flow Rate FiO2 05/18/25 13:05 98.8 70 16 118/79 (92) 97 98.8 05/18/25 05:19 Room Air General Appearance: Alert, Oriented X3, Cooperative, No acute distress HEENT: Atraumatic, PERRLA, EOMI, Mucous membr. moist/pink Respiratory: Clear to auscultation, Normal air movement Cardiovascular: Regular rate, Normal S1, Normal S2, No murmurs Abdominal: Normal bowel sounds, Soft, No tenderness, No hepatospenomegaly, No masses Extremities: No clubbing, No cyanosis, No edema, Normal pulses, No tenderness/swelling Skin: No rashes, No breakdown, No significant lesion Neuro: Normal speech, Normal tone, Sensation intact, Cranial nerves 3-12 NL, Reflexes 2+, Other (Generalized weakness) Psych/Mental Status: Mental status NL, Mood NL Labs/Xrays Labs Test 05/18/25 13:56 05/18/25 03:57 05/18/25 02:39 Range/Units Urine Color Light-yellow Yellow Urine Clarity Clear Clear Urine pH 6.5 5.0-9.0 Urine Specific [place] 1.020 1.001-1.035 Urine Protein Negative Negative Urine Ketones Negative Negative Urine Blood 3+ H Negative /uL Urine Nitrite Negative Negative Urine Bilirubin Negative Negative Urine Urobilinogen Normal Negative mg/dL Urine Leukocyte Esterase Negative Negative /uL Urine RBC 104 0 - 4 /hpf Urine Microscopic WBC 1 0-5 /HPF Urine Squamous Epithelial Cells Few <5 /hpf Urine Bacteria None seen None Seen /hpf Urine Glucose Normal Normal mg/dL Urine Test Negative Negative White Blood Count 7.4 4.4-10.8 10^3/uL Red Blood Count 4.41 4.0-5.20 10^6/uL Hemoglobin 12.0 L 12.2-16.2 g/dL Hematocrit 36.9 36.0-46.0 % Mean Corpuscular Volume 83.7 80.0-100.0 fL Mean Corpuscular Hemoglobin 27.3 L 28.0-32.0 pg Mean Corpuscular Hemoglobin Concent 32.6 32.0-36.0 g/dL Red Cell Distribution Width 15.6 H 11.8-14.3 % Platelet Count 300 140-450 10^3/uL Mean Platelet Volume 7.2 6.9-10.8 fL Neutrophils (%) (Auto) 59.9 37.0-80.0 % Lymphocytes (%) (Auto) 30.8 10.0-50.0 % Monocytes (%) (Auto) 6.6 0.0-12.0 % Eosinophils (%) (Auto) 2.0 0.0-7.0 % Basophils (%) (Auto) 0.7 0.0-2.0 % Neutrophils # (Auto) 4.5 1.6-8.6 10 ^3/uL Lymphocytes # (Auto) 2.3 0.4-5.4 10 ^3/uL Monocytes # (Auto) 0.5 0-1.3 10 ^3/uL Eosinophils # (Auto) 0.1 0-0.8 10 ^3/uL Basophils # (Auto) 0.1 0-0.2 10 ^3/uL Nucleated Red Blood Cells 0.0 % Sodium Level 141 136-145 mmol/L Potassium Level 3.8 3.5-5.1 mmol/L Chloride Level 105 98-107 mmol/L Carbon Dioxide Level 28 20-31 mmol/L Anion Gap 8 5-15 Blood Urea Nitrogen 8 L 9-23 mg/dL Creatinine 0.61 0.550-1.02 mg/dL Glomerular Filtration Rate Calc 119 >90 mL/min BUN/Creatinine Ratio 13.1 10.0-20.0 Serum Glucose 94 74-106 mg/dL Calcium Level 9.2 8.7-10.4 mg/dL Magnesium Level 2.1 1.6-2.6 mg/dL PATIENT: ANNA GRANGER ACCT: [id number] UNIT: [id number] : 1990 LOC: ER ROOM / BED: / AGE / SEX: 34 / F ADM STATUS: REG ER SERVICE [id number] ORDERING PHYSICIAN: SOM BOX MD PROCEDURE(s): ABPL - CT AB PEL WO CON-NO ORAL OR IV REASON: llq pain ORDER NUMBER(s): [id number], ACCESSION NUMBER(s): [id number] EXAM: CT CT AB PEL WO CON-NO ORAL OR IV HISTORY: llq pain Comparison Study: None Exam Date: 05/18/2025 09:48 AM Radiation Dose Information: CT Dose: CTDI volume is 11.6 mGy. Dose-length product is 571.79 mGy*cm TECHNIQUE: Multidetector CT of the abdomen and pelvis was performed. Imaging was performed without IV contrast. Axial, coronal and sagittal multiplanar reformats were obtained from the axial data set by the technologist. FINDINGS: Lack of intravenous contrast compromises evaluation of perfusion and for isodense lesions. Lower chest: Clear. Liver: Unremarkable Biliary system: Unremarkable Spleen: Unremarkable Pancreas: Unremarkable. Adrenals: Unremarkable. Kidneys and ureters: No hydronephrosis. No renal or ureteral calculi. Bowel: No obstruction. Normal appendix. Bladder: Unremarkable Reproductive organs: No abnormal mass. Lymph nodes: Unremarkable. Peritoneum: Unremarkable Vessels: Patency not evaluated on this noncontrast study. Bones and soft tissue: No aggressive osseous lesion IMPRESSION: No acute CT findings in the abdomen and pelvis. ORDERING PHYSICIAN: ROMERO BURRIS MD PROCEDURE(s): PELUS - PELVIC REASON: Left pelvic pain, Heavy Vaginal Bleeding ORDER NUMBER(s): [id number], ACCESSION NUMBER(s): [id number] Pelvic ultrasound HISTORY: Left pelvic pain, Heavy Vaginal Bleeding TECHNIQUE: 2-D real-time ultrasound was performed with sagittal and axial images submitted for evaluation. Images were obtained transabdominally and t ransvaginally. FINDINGS: Uterus measures 7 x 5.9 x 5.4 cm with an endometrial thickness of 10 mm. There are nabothian cysts in the cervix. Right ovary 3.6 x 2.1 x 1.8 cm. 5-6 mm cyst in the right ovary Left ovary 3.5 x 2 x 3.1 cm. 2 x 1.8 x 1.3 cm cyst in the left ovary There is flow to both ovaries. There is a minimal amount of free fluid in the cul-de-sac. IMPRESSION: 1. Normal-appearing uterus and ovaries SEPSIS Sepsis Screen Date sepsis recognized/suspect: May 18, 2025 Time Sepsis recognized/suspect: 227 Recent Procedure: No On Antibiotic Therapy: No Respiratory Rate >20: No Heart Rate >90: No Temp<36 C (96.8 F) or >38.3 C: No SBP <90 or MAP <65 mmHG: No New Acute Mental Status Change: No Is the patient on CPAP, BIPAP,: No Physician Orders Transvaginal Us Non Ob (05/18/25 ) Ct Ab Pel Wo Con-No Oral Or Iv (05/18/25 09:41) Allergies (05/18/25 13:46) Code Status (05/18/25 13:46) Sodium Chloride Lock (Saline Lock Ns) (05/18/25 14:00) Oxygen Per Hour (05/18/25 13:46) Hydrocodone-Acet 5/325mg Tab ([place] 5/32 (05/18/25 14:00) Ondansetron Hcl (Zofran) (05/18/25 14:00) Docusate Sodium Capsule (Colace Capsule) (05/18/25 14:00) Complete Blood Count (05/19/25 04:00) Comprehensive Metabolic Panel (05/19/25 04:00) Cardiac Diet-2gna,Lofat,Lochol (05/18/25 Dinner) Condition: Serious (05/18/25 13:46) Acetaminophen Tablet (Tylenol Tablet) (05/18/25 14:00) Bedrest With Bathroom Privileg (05/18/25 13:46) Sequential Compression Device (05/18/25 ) * Criminal Justice Faculty Consultation (05/18/25 13:46) PTPTT (05/18/25 13:48) Vital Signs Date Time Temp Pulse Resp B/P (MAP) Pulse Ox O2 Delivery O2 Flow Rate FiO2 05/18/25 13:05 98.8 70 16 118/79 (92) 97 98.8 05/18/25 11:01 98.7 80 16 131/73 (92) 98 98.7 05/18/25 07:41 98.5 60 16 158/86 (110) 98 98.5 Laboratory Tests Test 05/18/25 02:39 White Blood Count 7.4 10^3/uL (4.4-10.8) Medications Medications Dose Ordered Sig/Yg Route Start Time Stop Time Status Last Admin Dose Admin Acetaminophen 1,000 mg ONCE ONCE PO 05/18/25 03:30 05/18/25 03:31 DC 05/18/25 03:54 1,000 MG Acetaminophen/ Hydrocodone Bitart 1 tab ONCE ONCE PO 05/18/25 09:45 05/18/25 09:46 DC 05/18/25 09:57 1 TAB Ketorolac Tromethamine 30 mg ONCE ONCE IM 05/18/25 05:45 05/18/25 05:46 DC 05/18/25 05:55 30 MG Assessment/Plan Assessment/Plan Vaginal bleeding Dizziness Intractable abdominal pain Abnormal uterine bleeding Plan 1. Admit to telemetry unit 2. Breathing treatment 3. Pain control management 4. Management of fluids and electrolytes 5. Consultation for OBGYN 6. Diagnostic tests abdomen/pelvis CT 7. DVT prophylaxis-on SCDs 8. Repeat labs CBC, CMP in a.m. 9. Continue with current medical management 10. Treatment plan discussed with patient and RN. Patient verbalized understanding. Plan discussed with: Patient, Other (RN) My Orders Orders - ALEJANDRA MATHEWS DNP Procedure Category Date Status Time Allergies SABIHA 05/18/25 In Process 13:46 Code Status CODE 05/18/25 Transmitted 13:46 Sodium Chloride Lock PHA 05/18/25 Logged (Saline Lock Ns) 14:00 Oxygen Per Hour RT 05/18/25 Transmitted 13:46 Hydrocodone-Acet PHA 05/18/25 Logged 5/325mg Tab ([place] 14:00 Ondansetron Hcl PHA 05/18/25 Logged (Zofran) 14:00 Docusate Sodium PHA 05/18/25 Logged Capsule (Colace 14:00 Complete Blood Count LAB 05/19/25 Verified 04:00 Comprehensive LAB 05/19/25 Verified Metabolic Panel 04:00 Cardiac DIET 05/18/25 Transmitted Diet-2gna,Lofat,Lochol Dinner Condition: Serious SABIHA 05/18/25 In Process 13:46 Acetaminophen Tablet PHA 05/18/25 Logged (Tylenol Tablet) 14:00 Bedrest With Bathroom SABIHA 05/18/25 In Process Privileg 13:46 Sequential SABIHA 05/18/25 In Process Compression Device * Criminal Justice Faculty Consultation CONS 05/18/25 Transmitted 13:46 PTPTT LAB 05/18/25 In Process 13:48 Problem List: (1) Vaginal bleeding (2) Dizziness (3) Intractable abdominal pain (4) Abnormal uterine bleeding Date of Service: May 18, 2025 Billing Provider: ALEJANDRA MATHEWS DNP Common Visit Codes: [id number] INP/OBS CARE (HIGH) ALEJANDRA MATHEWS DNP May 18, 2025 14:09
[2025-05-18] MEDS ORDERED: NITROGLYCERIN 0.4 MG SL TAB SL PRN (14:15)
[2025-05-18 14:24] LABS: INR 1.03 (0.9-1.15); Partial Thromboplastin Time 29.7 SEC (24.5-34.5); Prothrombin Time 10.9 sec (9.3-11.8)
[2025-05-18] MEDS: SODIUM CHLOR 0.9% PF (SALINE LOCK) 10ML VIAL/SYR IV SCH (15:06)
[2025-05-18] MEDS: MORPHINE SULFATE 4 MG/ML SYR/VIAL ONE ×2 (15:28→20:42)
[2025-05-18] MEDS: MORPHINE SULFATE INJ 2 MG/ml SYRG IV PRN (15:28)
[2025-05-18] MEDS: ONDANSETRON HCL 4 MG/2 ML VIAL IV PRN (15:28)
[2025-05-18 16:07] VITALS: PULSE 65; RESP 17; O2SAT 98
[2025-05-18 19:30] VITALS: PULSE 88; RESP 15; O2SAT 97
[2025-05-18 21:49] VITALS: BP 108/60; PULSE 68; RESP 16; TEMP 98.3; O2SAT 98
[2025-05-18] MEDS: HYDROcodone-ACET 5/325MG TAB PO PRN (22:42)
[2025-05-19] VITALS (7 sets, daily range): BP systolic 102–141; BP diastolic 67–94; PULSE 69–102; RESP 16–18; TEMP 98–98.9; O2SAT 93–100
[2025-05-19] MEDS: MELATONIN 5 MG TAB PO PRN (00:55)
[2025-05-19] MEDS: IBUPROFEN 800 MG TAB PO ONE (00:55)
[2025-05-19] MEDS: MELATONIN 5 MG TAB ONE (00:56)
[2025-05-19 07:03] LABS: Hematocrit 36.0 % (36.0-46.0); Hemoglobin 11.8 g/dL (12.2-16.2); Mean Corpuscular Hemoglobin 27.3 pg (28.0-32.0); Mean Corpuscular Volume 83.3 fL (80.0-100.0); Nucleated Red Blood Cells % 0.1 %
[2025-05-19 07:06] LABS: Alanine Aminotransferase 21 U/L (7-40); Alkaline Phosphatase 71 U/L (46-116); Anion Gap 10 (5-15); BUN/Creatinine Ratio 13.6 (10.0-20.0); Calcium 9.8 mg/dL (8.7-10.4); Carbon Dioxide 28 mmol/L (20-31); Chloride 104 mmol/L (98-107); Glucose 97 mg/dL (74-106); Potassium 4.1 mmol/L (3.5-5.1); Sodium 142 mmol/L (136-145); Total Protein 6.2 g/dL (5.7-8.2)
[2025-05-19 07:07] LABS: Albumin 4.0 g/dL (3.2-4.8); Bilirubin, Total 0.9 mg/dL (0.2-1.0)
[2025-05-19 07:08] LABS: Blood Urea Nitrogen 9 mg/dL (9-23)
[2025-05-19] MEDS: ACETAMINOPHEN 325 MG TAB PO PRN (10:27)
[2025-05-19] MEDS ORDERED: UBRO100T2 PO (12:48)
[2025-05-19] MEDS ORDERED: UBROGEPANT 100 MG PO PRN (14:30)
[2025-05-19] MEDS: MORPHINE SULFATE 4 MG/ML SYR/VIAL IV PRN (15:06)
--- NOTE | 2025-05-19 17:00 | DVHINCON2 ---
Date of service: May 19, [address] Guerrier Reason for Consultation Migraine History of Present Illness Ms. Elizondo is a right-handed female with a history of obesity, depression, asthma, anemia, she came to the [facility] on 05/18/2025 with a chief complaint of for gentleman bleeding and passing out, at that time, she is alert and fully oriented, I have discussed with her nurse Because heavy vaginal bleeding, along with constant, sometimes intense abdominal pain, the patient came to the hospital for medical attention, but she also has other problems Towards the end of the last week, when she had happened a intense abdominal pain, she developed dizziness/lightheadedness, hot flushing, blurry vision, and he passed out for a few sec of time. She was sitting, she had a passing out on 01/25/2025, which started with blurry vision, foggy brain, things moving back in forth or spinning, she passed out for no more than 1 minute. He was seen in the [facility] and was said to have vertigo. She has intense periodic headache since age of 27, that was associated with heightened sensitivity to lights, noise, nausea, diplopia and vertigo, I saw in my office, current treatment does not help her headache, instead, she has had a constant intense headache for more than one week Urinalysis, 05/18/2025: WBC: 1, urine leukocyte esterase: Negative WBC/HB/PLT/MCV, 05/19/2025: 502/11.8/270/83.3 BMP, 05/19/2025: Unremarkable LFT 05/19/2025: Unremarkable CT head, 05/18/2025: No acute CT findings in the abdomen and pelvis. Past Medical History Anemia, asthma Past Surgical History Family History: Patient reports no known family medical history. Family History Dyslipidemia, diabetes, dementia Social History Smoker: Non-Smoker Alcohol: Denies ETOH Use Drugs: Denies Drug Use Lives In: Home Allergies: Coded Allergies: NO KNOWN ALLERGIES (Unverified , 10/14/18) Home Meds Active Scripts Tramadol HCl (Tramadol HCl) 50 Mg Tab, 50 MG PO BID, #20 TAB Prov:ANAYELI PAINTING 07/27/24 Prednisone (Prednisone) 20 Mg Tab, 40 MG PO DAILY, #20 TAB Prov:ANAYELI PAINTING 07/27/24 Reported Medications Ubrogepant (Ubrelvy) 100 Mg Tab, 100 MG PO, #10 TAB 05/19/25 Current Medications Current Medications Medications (Trade) Dose Ordered Sig/Yg Route PRN Reason Start Time Stop Time Status Last Admin Morphine Sulfate 2 mg [id number] PRN IV FOR CHEST PAIN 05/18/25 20:30 Melatonin (Melatonin) 5 mg HSPRN PRN PO sleep 05/19/25 22:00 05/19/25 00:55 Morphine Sulfate 2 mg Q4HPRN PRN IV SEVERE PAIN (7-10 PAIN SCALE) 05/19/25 14:30 05/19/25 15:06 Patient Own Medication 1 DAILYPRN PRN PO MIGRAINES 05/19/25 14:30 Review of Systems As above, the other systems are negative Vital Signs Vital Signs Date Time Temp Pulse Resp B/P (MAP) Pulse Ox O2 Delivery O2 Flow Rate FiO2 05/19/25 15:06 69 20 141/94 05/19/25 13:00 98.6 95 98.6 05/19/25 08:16 Room Air* 0 21 Physical Exam GENERAL EXAM: General: the patient is well developed and nourished. No acute distress. HEENT: Normocephalic, neck is supple, no carotid bruits. No mass. RESPIRATORY: Normal respiratory effort with symmetrical lung expansion. Lungs clear to auscultation. CARDIOVASCULAR: Regular rate and rhythm with no murmurs. S1, S2. ABDOMEN: Soft, nontender, normal bowel sound NEUROLOGICAL: MENTAL STATUS: Awake and alert. Oriented to person, place, time and general circumstances. Able to give personal history. SPEECH, LANGUAGE, HIGHER CORTICAL FUNCTION: no aphasia or dysathria. CRANIAL NERVES: #2: Intact visual castaneda to confrontation. The optic discs were sharp. Retinal background was uniformly pink in appearance. There was no hemorrhages or exudates. #3,4,6: Pupils are equal, round and reactive. EOMs full and conjugate. Mild bilateral gaze evoked nystagmus. #5: Facial sensation intact in all three divisions bilaterally. Mandibular strength intact. #7: Facial muscles symmetrical and strength intact. #8: Hearing grossly normal to voice. #9,10: Uvula and soft palate rise in the midline. Swallow and voice are normal. #11: Trapezius and sternomastoid strength intact bilaterally. #12: Tongue midline. No fasciculations or atrophy. SENSATION: Sensation to touch and pinprick is normal. MOTOR: Normal tone in the upper and lower extremity. Normal muscle bulk. No fasciculations. No abnormal movements or posturing. Muscle strength of the major groups in the upper extremities is 5/5. Muscle strength of the major groups in the lower extremities is 5/5. REFLEXES: Deep tendon reflexes normal and symmetrical. No pathological reflexes. CEREBELLAR/COORDINATION: Finger to nose and heel to membreno are normal bilaterally. GAIT/STATION: deferred. Labs/Diagnostic Data Labs Test 05/19/25 05:06 05/18/25 13:56 05/18/25 03:57 05/18/25 02:39 Range/Units White Blood Count 5.2 # 4.4-10.8 10^3/uL Red Blood Count 4.32 4.0-5.20 10^6/uL Hemoglobin 11.8 L 12.2-16.2 g/dL Hematocrit 36.0 36.0-46.0 % Mean Corpuscular Volume 83.3 80.0-100.0 fL Mean Corpuscular Hemoglobin 27.3 L 28.0-32.0 pg Mean Corpuscular Hemoglobin Concent 32.8 32.0-36.0 g/dL Red Cell Distribution Width 15.4 H 11.8-14.3 % Platelet Count 270 140-450 10^3/uL Mean Platelet Volume 7.5 6.9-10.8 fL Neutrophils (%) (Auto) 52.4 37.0-80.0 % Lymphocytes (%) (Auto) 35.4 10.0-50.0 % Monocytes (%) (Auto) 9.7 0.0-12.0 % Eosinophils (%) (Auto) 2.2 0.0-7.0 % Basophils (%) (Auto) 0.3 0.0-2.0 % Neutrophils # (Auto) 2.7 1.6-8.6 10 ^3/uL Lymphocytes # (Auto) 1.9 0.4-5.4 10 ^3/uL Monocytes # (Auto) 0.5 0-1.3 10 ^3/uL Eosinophils # (Auto) 0.1 0-0.8 10 ^3/uL Basophils # (Auto) 0 0-0.2 10 ^3/uL Nucleated Red Blood Cells 0.1 % Sodium Level 142 136-145 mmol/L Potassium Level 4.1 3.5-5.1 mmol/L Chloride Level 104 98-107 mmol/L Carbon Dioxide Level 28 20-31 mmol/L Anion Gap 10 5-15 Blood Urea Nitrogen 9 9-23 mg/dL Creatinine 0.66 0.550-1.02 mg/dL Glomerular Filtration Rate Calc 117 >90 mL/min BUN/Creatinine Ratio 13.6 10.0-20.0 Serum Glucose 97 74-106 mg/dL Calcium Level 9.8 8.7-10.4 mg/dL Total Bilirubin 0.9 0.2-1.0 mg/dL Aspartate Amino Transferase (AST) 15 13-40 U/L Alanine Aminotransferase (ALT) 21 7-40 U/L Alkaline Phosphatase 71 46-116 U/L Total Protein 6.2 5.7-8.2 g/dL Albumin 4.0 3.2-4.8 g/dL Prothrombin Time 10.9 9.3-11.8 sec Prothrombin Time INR 1.03 0.9-1.15 Activated Partial Thromboplast Time 29.7 24.5-34.5 SEC Urine Color Light-yellow Yellow Urine Clarity Clear Clear Urine pH 6.5 5.0-9.0 Urine Specific [place] 1.020 1.001-1.035 Urine Protein Negative Negative Urine Ketones Negative Negative Urine Blood 3+ H Negative /uL Urine Nitrite Negative Negative Urine Bilirubin Negative Negative Urine Urobilinogen Normal Negative mg/dL Urine Leukocyte Esterase Negative Negative /uL Urine RBC 104 0 - 4 /hpf Urine Microscopic WBC 1 0-5 /HPF Urine Squamous Epithelial Cells Few <5 /hpf Urine Bacteria None seen None Seen /hpf Urine Glucose Normal Normal mg/dL Urine Test Negative Negative Magnesium Level 2.1 1.6-2.6 mg/dL Assessment Migraine headache Status migrainosus Ophthalmoplegic migraine Basilar migraine Chronic migraine Complicated headache syndrome Passing out, likely syncope Plan/Recommendation Monitoring Regular sleep and meal schedule Good hydration Avoid triggering factors Avoid ergot and triptan A trial of Qulipta 60 mg daily (sample given to Jefferson, her nurse) A trial of normal saline 100 mg per hour, dexamethasone 10 mg daily, Reglan 15 mg t.i.d. Current pain management Syncopal precautions discussed Follow up with me in the office More recommendation per clinical course This medical document was created using an electronic medical record system with [employer] computerized dictation system. Although this document has been carefully reviewed, there may still be some phonetic and typographical errors. These a reas are purely typographical due to imperfections of the software programs, and do not reflect any compromise in the patient's medical care. Plan discussed with: Patient, Other DEREK GODINEZ MD May 19, 2025 17:00
--- NOTE | 2025-05-19 17:07 | DVHPN2 ---
Subjective Patient's came with a vaginal bleeding worsening for last 4-[address] abdomen and pelvis shows no evidence of any acute pathology. Changes from previous H/P or p: No Changes Eyes: No Pain, No Vision change, No Conjunctivae inflammation, No Eyelid inflammation, No Other, No Redness ENT: No Ear pain, No Ear discharge, No Nose pain, No Nose discharge, No Nose congestion, No Mouth pain, No Mouth swelling, No Throat pain, No Throat swelling, No Other Cardiovascular: No Chest Pain, No Palpitations, No Orthopnea, No Paroxysmal Noc. Dyspnea, No Edema, No Lt Headedness, No Other Respiratory: No Cough, No Dry, No Shortness of breath, No SOB with excertion, No Wheezing, No Hemoptysis, No Pleuritic Pain, No Sputum, No Other Gastrointestinal: No Nausea, No Vomiting, No Abdominal Pain, No Diarrhea, No Constipation, No Melena, No Hematochezia, No Other Genitourinary: No Dysuria, No Frequency, No Incontinence; Hematuria; No Retention; Other (Vaginal bleed) Musculoskeletal: No other, No neck pain, No shoulder pain, No arm pain, No back pain, No hand pain, No leg pain, No foot pain Skin: No Rash, No Lesions, No Jaundice, No Bruising, No Other Objective Vitals Vital Signs Date Time Temp Pulse Resp B/P (MAP) Pulse Ox O2 Delivery O2 Flow Rate FiO2 05/19/25 15:06 69 20 141/94 05/19/25 13:00 98.6 95 98.6 05/19/25 08:16 Room Air* 0 21 Intake/Output Intake and Output 05/19/25 07:00 Intake Total 300 ml Balance 300 ml Intake Tube Feeding 300 ml # Voids 2 # Sanitary Pads 1 Exam HEENT pupils are reactive Neck is supple CV is S1-S2 regular rate and rhythm Diminished breath sounds bases GI positive bowel sound, minimally positive tenderness in the left lower quadrant with a no guarding no rigidity Extremity no edema RELAY CHECKER no motor deficit Medications Current Medications Medications Dose Ordered Sig/Yg Route Start Time Stop Time Status Last Admin Dose Admin Sodium Chloride 10 ml Q8HR IV 05/18/25 14:00 05/19/25 14:12 10 ML Acetaminophen/ Hydrocodone Bitart 1 tab Q4HP PRN PO 05/18/25 14:00 05/18/25 22:42 1 TAB Ondansetron HCl 4 mg Q4HP PRN IV 05/18/25 14:00 05/18/25 20:38 4 MG Docusate Sodium 100 mg BIDPRN PRN PO 05/18/25 14:00 Acetaminophen 650 mg Q6HP PRN PO 05/18/25 14:00 05/19/25 10:27 650 MG Nitroglycerin 0.4 mg Q5MINP PRN SL 05/18/25 14:15 Morphine Sulfate 2 mg [id number] PRN IV 05/18/25 20:30 Melatonin 5 mg HSPRN PRN PO 05/19/25 22:00 05/19/25 00:55 5 MG Morphine Sulfate 2 mg Q4HPRN PRN IV 05/19/25 14:30 05/19/25 15:06 2 MG Patient Own Medication 1 DAILYPRN PRN PO 05/19/25 14:30 Laboratory Results Laboratory Tests 05/19/25 05:06 Chemistry Test 05/19/25 05:06 Albumin 4.0 g/dL (3.2-4.8) Calcium Level 9.8 mg/dL (8.7-10.4) Total Protein 6.2 g/dL (5.7-8.2) LFT Test 05/19/25 05:06 Alanine Aminotransferase (ALT) 21 U/L (7-40) Alkaline Phosphatase 71 U/L (46-116) Aspartate Amino Transferase (AST) 15 U/L (13-40) Total Bilirubin 0.9 mg/dL (0.2-1.0) Urinalysis Test 05/18/25 03:57 Urine Color Light-yellow (Yellow) Urine Clarity Clear (Clear) Urine pH 6.5 (5.0-9.0) Urine Specific [place] 1.020 (1.001-1.035) Urine Protein Negative (Negative) Urine Ketones Negative (Negative) Urine Blood 3+ /uL (Negative) H Urine Nitrite Negative (Negative) Urine Bilirubin Negative (Negative) Urine Urobilinogen Normal mg/dL (Negative) Urine Leukocyte Esterase Negative /uL (Negative) Urine RBC 104 /hpf (0 - 4) Urine Microscopic WBC 1 /HPF (0-5) Urine Squamous Epithelial Cells Few /hpf (<5) Urine Bacteria None seen /hpf (None Seen) Urine Glucose Normal mg/dL (Normal) Urine Test Negative (Negative) Assessment/Plan Assessment/Plan 34-year-old female with a known history of anemia, chronic headaches presented to the hospital with a vaginal bleeding worsening for last four weeks found to have 1. Acute symptomatic anemia 2. Vaginal bleeding 3. Chronic headaches -monitor H&H, gynecology consultation. Plan discussed with: Patient My Orders Orders - MATHEW HOPE MD Procedure Category Date Status Time Morphine Sulfate PHA 05/19/25 In Process Injection 14:30 * Neurology Consult CONS 05/19/25 Transmitted 14:27 Patients Own PHA 05/19/25 In Process Medication 14:30 Date of Service: May 19, 2025 Billing Provider: MATHEW HOPE MD Common Visit Codes: [id number] INP/OBS CARE(HIGH) MATHEW HOPE MD May 19, 2025 17:07
[2025-05-19] MEDS: SODIUM CHLORIDE 0.9% 1,000 ML IV SCH (17:30)
[2025-05-19] MEDS: METOCLOPRAMIDE HCL 10 MG TAB PO SCH (22:06)
[2025-05-20] VITALS (9 sets, daily range): BP systolic 105–120; BP diastolic 67–78; PULSE 82–116; RESP 17–20; TEMP 98.2–98.6; O2SAT 93–100
[2025-05-20] MEDS: MORPHINE SULFATE 4 MG/ML SYR/VIAL IV PRN (05:31)
--- NOTE | 2025-05-20 09:20 | DVHPN2 ---
Progress Note - Dictate Date Seen: May 20, 2025 Medical Necessity Reason Pt with a Central, PICC or Fol: No Subjective Ms. Elizondo is a right-handed female with a history of obesity, depression, asthma, anemia, she came to the [facility] on 05/18/2025 with a chief complaint of for gentleman bleeding and passing out, at that time I have seen and examined the patient, I have talked to her nurse, she reports significant improvement in her headache, no new complaints Urinalysis, 05/18/2025: WBC: 1, urine leukocyte esterase: Negative WBC/HB/PLT/MCV, 05/19/2025: 502/11.8/270/83.3 BMP, 05/19/2025: Unremarkable LFT 05/19/2025: Unremarkable CT head, 05/18/2025: No acute CT findings in the abdomen and pelvis d using an electronic medical record system with [employer] computerized dictation system. Although this document has been carefully reviewed, there may still be some phonetic and typographical errors. These areas are purely typographical due to imperfections of the software programs, and do not reflect any compromise in the patient's medical care. vital signs Vital Sign Date Time Temp Pulse Resp B/P (MAP) Pulse Ox O2 Delivery O2 Flow Rate FiO2 05/20/25 06:01 76 16 106/70 05/20/25 05:00 98.4 95 98.4 05/19/25 20:00 Room Air* 0 21 Total Intake and Output 05/19/25 05/19/25 05/20/25 15:00 23:00 07:00 Intake Total 450 ml 1920 ml Balance 450 ml 1920 ml medications Current Medications Medications Dose Ordered Sig/Yg Route Start Time Stop Time Status Last Admin Dose Admin Sodium Chloride 10 ml Q8HR IV 05/18/25 14:00 05/20/25 06:00 10 ML Acetaminophen/ Hydrocodone Bitart 1 tab Q4HP PRN PO 05/18/25 14:00 05/19/25 23:42 1 TAB Ondansetron HCl 4 mg Q4HP PRN IV 05/18/25 14:00 05/18/25 20:38 4 MG Docusate Sodium 100 mg BIDPRN PRN PO 05/18/25 14:00 Acetaminophen 650 mg Q6HP PRN PO 05/18/25 14:00 05/19/25 10:27 650 MG Nitroglycerin 0.4 mg Q5MINP PRN SL 05/18/25 14:15 Morphine Sulfate 2 mg [id number] PRN IV 05/18/25 20:30 05/20/25 05:31 2 MG Melatonin 5 mg HSPRN PRN PO 05/19/25 22:00 05/19/25 22:06 5 MG Morphine Sulfate 2 mg Q4HPRN PRN IV 05/19/25 14:30 05/19/25 15:06 2 MG Patient Own Medication 1 DAILYPRN PRN PO 05/19/25 14:30 Patient Own Medication 60 mg DAILY PO 05/19/25 23:00 05/19/25 22:07 60 MG Sodium Chloride 1,000 ml @ 100 mls/hr Q10H IV 05/19/25 17:30 05/20/25 03:30 100 MLS/HR Dexamethasone Sodium Phosphate 10 mg/Dextrose 51 ml @ 204 mls/hr DAILY IV 05/20/25 10:00 Metoclopramide HCl 15 mg Q8HR PO 05/19/25 22:00 05/20/25 05:32 15 MG objective General: the patient is well developed and nourished. No acute distress. MENTAL STATUS: Awake and alert. Oriented to person, place, time and general circumstances SPEECH, LANGUAGE, HIGHER CORTICAL FUNCTION: no aphasia or dysathria. CRANIAL NERVES: Pupils are equal, round and reactive. EOMs full and conjugate. Mild bilateral gaze evoked nystagmus. Facial sensation intact in all three divisions bilaterally. Mandibular strength intact. Facial muscles symmetrical and strength intact. SENSATION: Sensation to touch and pinprick is normal. MOTOR: Normal tone in the upper and lower extremity. Normal muscle bulk. No fasciculations. No abnormal movements or posturing. Muscle strength of the major groups in the extremities is 5/5. REFLEXES: Deep tendon reflexes normal and symmetrical. No pathological reflexes. CEREBELLAR/COORDINATION: Finger to nose and heel to membreno are normal bilaterally. GAIT/STATION: deferred laboratory and microbiology Laboratory Tests 05/19/25 05:06 Test 05/19/25 05:06 Range/Units Serum Glucose 97 74-106 mg/dL Problem List Migraine headache Status migrainosus Ophthalmoplegic migraine Basilar migraine Chronic migraine Complicated headache syndrome Passing out, likely syncope Assessment/Plan Monitoring Regular sleep and meal schedule Good hydration Avoid triggering factors Avoid ergot and triptan Qulipta 60 mg daily (sample given to Jefferson, her nurse) Normal saline 100 mg per hour, dexamethasone 10 mg daily, Reglan 15 mg t.i.d. Current pain management Syncopal precautions discussed Follow up with me in the office More recommendation per clinical course This medical document was created using an electronic medical record system with [employer] dictation system. Although this document has been carefully reviewed, there may still be some phonetic and typographical errors. These areas are purely typographical due to imperfections of the software programs, and do not reflect any compromise in the patient's medical care. Prognosis poor Plan discussed with: Patient, Other DEREK GODINEZ MD May 20, 2025 09:20
[2025-05-20 10:20] LABS: Hepatitis B Surface Antigen Negative (Negative); Hepatitis C Antibody Negative (Negative)
--- NOTE | 2025-05-20 16:55 | DVHPN2 ---
Subjective Patient's came with a vaginal bleeding worsening for last 4-[address] abdomen and pelvis shows no evidence of any acute pathology. PATIENT IS KEPT COMPLAINING OF LEFT LOWER QUADRANT ABDOMINAL PAIN. ALTHOUGH ABDOMINAL EXAMINATION IS BENIGN. Changes from previous H/P or p: No Changes Eyes: No Pain, No Vision change, No Conjunctivae inflammation, No Eyelid inflammation, No Other, No Redness ENT: No Ear pain, No Ear discharge, No Nose pain, No Nose discharge, No Nose congestion, No Mouth pain, No Mouth swelling, No Throat pain, No Throat swelling, No Other Cardiovascular: No Chest Pain, No Palpitations, No Orthopnea, No Paroxysmal Noc. Dyspnea, No Edema, No Lt Headedness, No Other Respiratory: No Cough, No Dry, No Shortness of breath, No SOB with excertion, No Wheezing, No Hemoptysis, No Pleuritic Pain, No Sputum, No Other Gastrointestinal: No Nausea, No Vomiting, No Abdominal Pain, No Diarrhea, No Constipation, No Melena, No Hematochezia, No Other Genitourinary: No Dysuria, No Frequency, No Incontinence; Hematuria; No Retention; Other (Vaginal bleed) Musculoskeletal: No other, No neck pain, No shoulder pain, No arm pain, No back pain, No hand pain, No leg pain, No foot pain Skin: No Rash, No Lesions, No Jaundice, No Bruising, No Other Objective Vitals Vital Signs Date Time Temp Pulse Resp B/P (MAP) Pulse Ox O2 Delivery O2 Flow Rate FiO2 05/20/25 13:00 98.2 91 20 117/78 (91) 94 98.2 05/20/25 08:15 Room Air* 0 21 Intake/Output Intake and Output 05/20/25 07:00 Intake Total 2370 ml Balance 2370 ml Intake Oral 1170 ml IV Total 1200 ml # Voids 10 Exam HEENT pupils are reactive Neck is supple CV is S1-S2 regular rate and rhythm Diminished breath sounds bases GI positive bowel sound, minimally positive tenderness in the left lower quadrant with a no guarding no rigidity Extremity no edema 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 Medications Current Medications Medications Dose Ordered Sig/Yg Route Start Time Stop Time Status Last Admin Dose Admin Sodium Chloride 10 ml Q8HR IV 05/18/25 14:00 05/20/25 14:18 10 ML Ondansetron HCl 4 mg Q4HP PRN IV 05/18/25 14:00 05/18/25 20:38 4 MG Docusate Sodium 100 mg BIDPRN PRN PO 05/18/25 14:00 Acetaminophen 650 mg Q6HP PRN PO 05/18/25 14:00 05/19/25 10:27 650 MG Nitroglycerin 0.4 mg Q5MINP PRN SL 05/18/25 14:15 Morphine Sulfate 2 mg [id number] PRN IV 05/18/25 20:30 05/20/25 05:31 2 MG Melatonin 5 mg HSPRN PRN PO 05/19/25 22:00 05/19/25 22:06 5 MG Morphine Sulfate 2 mg Q4HPRN PRN IV 05/19/25 14:30 05/19/25 15:06 2 MG Patient Own Medication 1 DAILYPRN PRN PO 05/19/25 14:30 Patient Own Medication 60 mg DAILY PO 05/19/25 23:00 05/20/25 09:43 60 MG Sodium Chloride 1,000 ml @ 100 mls/hr Q10H IV 05/19/25 17:30 05/20/25 13:30 100 MLS/HR Dexamethasone Sodium Phosphate 10 mg/Dextrose 51 ml @ 204 mls/hr DAILY IV 05/20/25 10:00 05/20/25 09:43 204 MLS/HR Metoclopramide HCl 15 mg Q8HR PO 05/19/25 22:00 05/20/25 14:49 15 MG Oxycodone/ Acetaminophen 1 tab Q4HP PRN PO 05/20/25 14:45 Laboratory Results Laboratory Tests 05/19/25 05:06 Urinalysis Test 05/18/25 03:57 Urine Color Light-yellow (Yellow) Urine Clarity Clear (Clear) Urine pH 6.5 (5.0-9.0) Urine Specific [place] 1.020 (1.001-1.035) Urine Protein Negative (Negative) Urine Ketones Negative (Negative) Urine Blood 3+ /uL (Negative) H Urine Nitrite Negative (Negative) Urine Bilirubin Negative (Negative) Urine Urobilinogen Normal mg/dL (Negative) Urine Leukocyte Esterase Negative /uL (Negative) Urine RBC 104 /hpf (0 - 4) Urine Microscopic WBC 1 /HPF (0-5) Urine Squamous Epithelial Cells Few /hpf (<5) Urine Bacteria None seen /hpf (None Seen) Urine Glucose Normal mg/dL (Normal) Urine Test Negative (Negative) Assessment/Plan Assessment/Plan 34-year-old female with a known history of anemia, chronic headaches presented to the hospital with a vaginal bleeding worsening for last four weeks found to have 1. Acute symptomatic anemia 2. Vaginal bleeding 3. Chronic MIGRAINE HEADACHES 4. LEFT LOWER QUADRANT ABDOMINAL PAIN -REPEAT ABDOMINAL ULTRASOUND -monitor H&H, gynecology consultation. Plan discussed with: Patient My Orders Orders - MATHWE HOPE MD Procedure Category Date Status Time Pelvic US 05/20/25 Taken 14:36 Oxycodone W/ Acet PHA 05/20/25 In Process 5/325mg Tab (Percocet 14:45 Date of Service: May 20, 2025 Billing Provider: MATHEW HOPE MD Common Visit Codes: [id number] INP/OBS CARE(HIGH) MATHEW HOPE MD May 20, 2025 16:55
--- NOTE | 2025-05-20 17:09 | DVH ---
ULTRASOUND OF THE PELVIS (NON-OB) FEMALE INDICATION: LEFT FLANK PAIN. LMP 11.25.25. A1. COMPARISON: US PELVIC on DOS: 05/18/25 TECHNIQUE AND FINDINGS: Transabdominal Ultrasound: Transabdominal ultrasound examination was performed. Endovaginal Ultrasound: Endovaginal ultrasound was performed for improved visualization of pelvic structures. UTERUS: The uterus measures 7.9 x 5.0 x 5.4 cm. No focal uterine abnormality is seen. There is a normal-appearing nabothian cyst in the cervix. The endometrial stripe is 20 mm in thickness and homogeneous, without any significant vascularity. RIGHT OVARY: The right ovary measures 4.4 x 3.3 x 3.1 cm. The right ovary is normal in appearance with expected Doppler flow. There are normal appearing follicles. There is no evidence of abnormal adnexal mass. LEFT OVARY: The left ovary measures 3.5 x 3.1 x 1.8 cm. The left ovary is normal in appearance with expected Doppler flow. There are normal appearing follicles. There is no evidence of abnormal adnexal mass. CUL de SAC: No evidence of pelvic free fluid or mass. IMPRESSION: Homogeneously thickened endometrial lining. This was within normal limits on the study performed 2 days prior and is likely related to phase of menstrual cycle. Follow-up pelvic ultrasound is recommended in 2 months.
[2025-05-20] MEDS: OXYCODONE W/ ACETAMINOPHEN 5/325MG TABLET PO PRN (17:22)
[2025-05-20] MEDS: DOCUSATE SOD 100 MG CAP PO PRN (17:41)
[2025-05-21] VITALS (8 sets, daily range): BP systolic 106–115; BP diastolic 57–80; PULSE 74–96; RESP 16–17; TEMP 97.8–98.5; O2SAT 95–100
--- NOTE | 2025-05-21 07:15 | DVHINCON2 ---
DATE OF CONSULTATION: 05/18/2025 REASON FOR CONSULTATION: Vaginal bleeding. HISTORY OF PRESENT ILLNESS: The patient is a 34-year-old 3, para 2, admitted for abnormal vaginal bleeding and pain. The patient gives CHANNEL MAN history of normal cycles and lasts 7 days. She is not anemic. She does complain of ovarian cyst history. Her ultrasound is essentially normal. The patient had hysteroscopy in 2019. PAST MEDICAL HISTORY: L3-L5 injury, migraine. PAST SURGICAL HISTORY: Hysteroscopy. SOCIAL HISTORY: None. ALLERGIES: No known drug allergies. REVIEW OF SYSTEMS: Consistent with HPI. PHYSICAL EXAMINATION: VITAL SIGNS: Stable, afebrile. HEENT: Within normal limits. CARDIOVASCULAR: Regular rate and rhythm. LUNGS: Clear to auscultation. BREASTS: Symmetrical. No masses. ABDOMEN: Soft, nontender. PELVIC: External genitalia within normal limits. Vagina normal. Cervix grossly normal appearing. Uterus normal size. Adnexa nonpalpable. EXTREMITIES: No clubbing, cyanosis, or edema. IMPRESSION: * Pelvic pain. * Abnormal uterine bleeding per history. PLAN: Recommend follow up with rn home care that the patient has for some medical management. We will sign off. Thank you very much for this consultation. DO BLANKA Gallego TID: [id number] RECEIPT: [id number]
--- NOTE | 2025-05-21 14:50 | DVHPN2 ---
Reviewed: Care Plan, H&P, Labs, Medications, Previous Orders, Radiology Changes from previous H/P or p: No Changes Eyes: No Pain, No Vision change, No Conjunctivae inflammation, No Eyelid inflammation, No Other, No Redness ENT: No Ear pain, No Ear discharge, No Nose pain, No Nose discharge, No Nose congestion, No Mouth pain, No Mouth swelling, No Throat pain, No Throat swelling, No Other Cardiovascular: No Chest Pain, No Palpitations, No Orthopnea, No Paroxysmal Noc. Dyspnea, No Edema, No Lt Headedness, No Other Respiratory: No Cough, No Dry, No Shortness of breath, No SOB with excertion, No Wheezing, No Hemoptysis, No Pleuritic Pain, No Sputum, No Other Gastrointestinal: No Nausea, No Vomiting, No Abdominal Pain, No Diarrhea, No Constipation, No Melena, No Hematochezia, No Other Genitourinary: No Dysuria, No Frequency, No Incontinence; Hematuria; No Retention; Other (Vaginal bleed) Musculoskeletal: No other, No neck pain, No shoulder pain, No arm pain, No back pain, No hand pain, No leg pain, No foot pain Skin: No Rash, No Lesions, No Jaundice, No Bruising, No Other Objective Vitals Vital Signs Date Time Temp Pulse Resp B/P (MAP) Pulse Ox O2 Delivery O2 Flow Rate FiO2 05/21/25 09:00 98.0 92 17 108/57 (74) 97 98.0 05/21/25 08:11 Room Air* 0 21 Intake/Output Intake and Output 05/21/25 07:00 Intake Total 2300 ml Balance 2300 ml Intake Oral 1300 ml IV Total 1000 ml # Voids 3 Medications Current Medications Medications Dose Ordered Sig/Yg Route Start Time Stop Time Status Last Admin Dose Admin Sodium Chloride 10 ml Q8HR IV 05/18/25 14:00 05/21/25 12:21 10 ML Ondansetron HCl 4 mg Q4HP PRN IV 05/18/25 14:00 05/18/25 20:38 4 MG Docusate Sodium 100 mg BIDPRN PRN PO 05/18/25 14:00 05/21/25 00:21 100 MG Acetaminophen 650 mg Q6HP PRN PO 05/18/25 14:00 05/19/25 10:27 650 MG Nitroglycerin 0.4 mg Q5MINP PRN SL 05/18/25 14:15 Morphine Sulfate 2 mg [id number] PRN IV 05/18/25 20:30 05/20/25 05:31 2 MG Melatonin 5 mg HSPRN PRN PO 05/19/25 22:00 05/20/25 21:29 5 MG Morphine Sulfate 2 mg Q4HPRN PRN IV 05/19/25 14:30 05/19/25 15:06 2 MG Patient Own Medication 1 DAILYPRN PRN PO 05/19/25 14:30 Patient Own Medication 60 mg DAILY PO 05/19/25 23:00 05/21/25 12:12 60 MG Sodium Chloride 1,000 ml @ 100 mls/hr Q10H IV 05/19/25 17:30 05/21/25 10:29 100 MLS/HR Dexamethasone Sodium Phosphate 10 mg/Dextrose 51 ml @ 204 mls/hr DAILY IV 05/20/25 10:00 05/21/25 10:30 204 MLS/HR Metoclopramide HCl 15 mg Q8HR PO 05/19/25 22:00 05/21/25 13:19 15 MG Oxycodone/ Acetaminophen 1 tab Q4HP PRN PO 05/20/25 14:45 05/20/25 17:22 1 TAB Tramadol HCl 50 mg TIDPRN PRN PO 05/20/25 20:45 05/21/25 12:18 50 MG Laboratory Results Laboratory Tests 05/19/25 05:06 Urinalysis Test 05/18/25 03:57 Urine Color Light-yellow (Yellow) Urine Clarity Clear (Clear) Urine pH 6.5 (5.0-9.0) Urine Specific [place] 1.020 (1.001-1.035) Urine Protein Negative (Negative) Urine Ketones Negative (Negative) Urine Blood 3+ /uL (Negative) H Urine Nitrite Negative (Negative) Urine Bilirubin Negative (Negative) Urine Urobilinogen Normal mg/dL (Negative) Urine Leukocyte Esterase Negative /uL (Negative) Urine RBC 104 /hpf (0 - 4) Urine Microscopic WBC 1 /HPF (0-5) Urine Squamous Epithelial Cells Few /hpf (<5) Urine Bacteria None seen /hpf (None Seen) Urine Glucose Normal mg/dL (Normal) Urine Test Negative (Negative) Labs and/or images reviewed: Labs reviewed by me, Image(s) reviewed by me Assessment/Plan Assessment/Plan 1. Acute symptomatic anemia 2. 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 Chronic MIGRAINE HEADACHES 4. LEFT LOWER QUADRANT ABDOMINAL PAIN test negative CT abdomen pelvis without contrast negative Pelvic ultrasound negative for any acute pathology, repeat pelvic ultrasound also neg Patient is in the restroom SOPHIE Schafer at bedside Plan discussed with: Patient Date of Service: May 21, 2025 Billing Provider: STEPH GONZALEZ MD Common Visit Codes: [id number] INP/OBS CARE(HIGH) STEPH GONZALEZ MD May 21, 2025 14:50
--- NOTE | 2025-05-21 17:59 | DVH ---
CLINICAL HISTORY: Left lower quadrant abdominal pain TECHNIQUE: MRI of the abdomen was performed without gadolinium. 3D reconstructed images were created under concurrent radiologist supervision and archived on the PACS system. COMPARISON: None FINDINGS: The spleen, pancreas, adrenal glands, kidneys, gallbladder, and liver are grossly unremarkable. The abdominal aorta is normal course and caliber. No enlarged lymph node is seen. No free fluid is present. There are partially imaged bilateral breast implants. IMPRESSION: No significant noncontrast MRI abnormality of the abdomen.
--- NOTE | 2025-05-21 22:27 | DVHINCON2 ---
Date of service: May 21, [address] Carl freeman Reason for Consultation LLQ pain History of Present Illness The patient is a 34 years old female with past medical history of anemia who presented to [facility] ED with complaint vaginal bleeding. Patient reports that she has been having present bleeding for 1 month, 1 week, constant, daily, consuming 4 pads per day with the occasional clots. Patient has started experiencing symptoms of dizziness, left lower quadrant abdominal pain, "cloudy" vision and sensation of "coldness". Abdomen/pelvis CT showed no acute findings. Patient was evaluated by OBGYN consult Dr Eduardo we recommended outpatient OBGYN follow up. No bowel movement was recorded today and patient has no rectal bleeding or diarrhea Past Medical History Past Medical History Anemia Past Surgical History Hysteroscopy 2018 Family History: Patient reports no known family medical history. Allergies: Coded Allergies: NO KNOWN ALLERGIES (Unverified , 10/14/18) Home Meds Active Scripts Tramadol HCl (Tramadol HCl) 50 Mg Tab, 50 MG PO BID, #20 TAB Prov:ANAYELI PAINTING 07/27/24 Prednisone (Prednisone) 20 Mg Tab, 40 MG PO DAILY, #20 TAB Prov:ANAYELI PAINTING 07/27/24 Reported Medications Ubrogepant (Ubrelvy) 100 Mg Tab, 100 MG PO, #10 TAB 05/19/25 Current Medications Current Medications Medications (Trade) Dose Ordered Sig/Yg Route PRN Reason Start Time Stop Time Status Last Admin Ceftriaxone Sodium 50 ml @ 100 mls/hr DAILY@09 IV 05/22/25 09:00 Metronidazole 100 ml @ 100 mls/hr Q8HR IV 05/21/25 22:00 05/21/25 21:52 Vital Signs Vital Signs Date Time Temp Pulse Resp B/P (MAP) Pulse Ox O2 Delivery O2 Flow Rate FiO2 05/21/25 21:00 98.1 85 16 106/66 (79) 96 98.1 05/21/25 08:11 Room Air* 0 21 Physical Exam HEENT pupils are reactive Neck is supple CV is S1-S2 regular rate and rhythm Diminished breath sounds bases GI positive bowel sound, minimally positive tenderness in the left lower quadrant with a no guarding no rigidity Extremity no edema 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 Labs/Diagnostic Data Labs Test 05/19/25 05:06 05/18/25 13:56 05/18/25 03:57 05/18/25 02:39 Range/Units White Blood Count 5.2 # 4.4-10.8 10^3/uL Red Blood Count 4.32 4.0-5.20 10^6/uL Hemoglobin 11.8 L 12.2-16.2 g/dL Hematocrit 36.0 36.0-46.0 % Mean Corpuscular Volume 83.3 80.0-100.0 fL Mean Corpuscular Hemoglobin 27.3 L 28.0-32.0 pg Mean Corpuscular Hemoglobin Concent 32.8 32.0-36.0 g/dL Red Cell Distribution Width 15.4 H 11.8-14.3 % Platelet Count 270 140-450 10^3/uL Mean Platelet Volume 7.5 6.9-10.8 fL Neutrophils (%) (Auto) 52.4 37.0-80.0 % Lymphocytes (%) (Auto) 35.4 10.0-50.0 % Monocytes (%) (Auto) 9.7 0.0-12.0 % Eosinophils (%) (Auto) 2.2 0.0-7.0 % Basophils (%) (Auto) 0.3 0.0-2.0 % Neutrophils # (Auto) 2.7 1.6-8.6 10 ^3/uL Lymphocytes # (Auto) 1.9 0.4-5.4 10 ^3/uL Monocytes # (Auto) 0.5 0-1.3 10 ^3/uL Eosinophils # (Auto) 0.1 0-0.8 10 ^3/uL Basophils # (Auto) 0 0-0.2 10 ^3/uL Nucleated Red Blood Cells 0.1 % Sodium Level 142 136-145 mmol/L Potassium Level 4.1 3.5-5.1 mmol/L Chloride Level 104 98-107 mmol/L Carbon Dioxide Level 28 20-31 mmol/L Anion Gap 10 5-15 Blood Urea Nitrogen 9 9-23 mg/dL Creatinine 0.66 0.550-1.02 mg/dL Glomerular Filtration Rate Calc 117 >90 mL/min BUN/Creatinine Ratio 13.6 10.0-20.0 Serum Glucose 97 74-106 mg/dL Calcium Level 9.8 8.7-10.4 mg/dL Total Bilirubin 0.9 0.2-1.0 mg/dL Aspartate Amino Transferase (AST) 15 13-40 U/L Alanine Aminotransferase (ALT) 21 7-40 U/L Alkaline Phosphatase 71 46-116 U/L Total Protein 6.2 5.7-8.2 g/dL Albumin 4.0 3.2-4.8 g/dL Hepatitis B Surface Antigen Negative Negative Hepatitis C Antibody Negative Negative Prothrombin Time 10.9 9.3-11.8 sec Prothrombin Time INR 1.03 0.9-1.15 Activated Partial Thromboplast Time 29.7 24.5-34.5 SEC Urine Color Light-yellow Yellow Urine Clarity Clear Clear Urine pH 6.5 5.0-9.0 Urine Specific [place] 1.020 1.001-1.035 Urine Protein Negative Negative Urine Ketones Negative Negative Urine Blood 3+ H Negative /uL Urine Nitrite Negative Negative Urine Bilirubin Negative Negative Urine Urobilinogen Normal Negative mg/dL Urine Leukocyte Esterase Negative Negative /uL Urine RBC 104 0 - 4 /hpf Urine Microscopic WBC 1 0-5 /HPF Urine Squamous Epithelial Cells Few <5 /hpf Urine Bacteria None seen None Seen /hpf Urine Glucose Normal Normal mg/dL Urine Test Negative Negative Magnesium Level 2.1 1.6-2.6 mg/dL MRI Abd Pelvis IMPRESSION: No significant noncontrast MRI abnormality of the abdomen. Pelvis USG IMPRESSION: Homogeneously thickened endometrial lining. This was within normal limits on the study performed 2 days prior and is likely related to phase of menstrual cycle. Follow-up pelvic ultrasound is recommended in 2 months. Problems(with codes): (1) Dysmenorrhea (2) Abnormal uterine bleeding (3) Vaginal bleeding (4) Intractable abdominal pain Plan/Recommendation Plan Left lower quadrant pain likely related to her menstrual cycle and dysmenorrhea I would recommend conservative management Advance diet as tolerated Bentyl 10 mg p.o. three times a day as needed for abdominal pain Outpatient follow up with GI Services to discuss elective screening Once again thank you for allowing me to participate in the care of this patient Plan discussed with: Other (Nurse) LUCAS ELLSWORTH MD May 21, 2025 22:27
[2025-05-22 01:00] VITALS: BP 116/60; PULSE 90; RESP 16; TEMP 98; O2SAT 97
[2025-05-22 05:00] VITALS: BP 118/76; PULSE 67; RESP 17; TEMP 97.7; O2SAT 96
[2025-05-22 08:00] VITALS: PULSE 68; O2SAT 100
[2025-05-22 09:00] VITALS: BP 107/73; PULSE 67; RESP 19; TEMP 98.2; O2SAT 95
[2025-05-22] MEDS ORDERED: METR-344 PO (09:21)
[2025-05-22] MEDS ORDERED: LEVO500T91 PO (09:21)
[2025-05-22] MEDS ORDERED: DICY10CA PO (09:21)
--- NOTE | 2025-05-22 09:24 | DVHPN2 ---
Reviewed: Care Plan, H&P, Labs, Medications, Previous Orders, Radiology Changes from previous H/P or p: No Changes Eyes: No Pain, No Vision change, No Conjunctivae inflammation, No Eyelid inflammation, No Other, No Redness ENT: No Ear pain, No Ear discharge, No Nose pain, No Nose discharge, No Nose congestion, No Mouth pain, No Mouth swelling, No Throat pain, No Throat swelling, No Other Cardiovascular: No Chest Pain, No Palpitations, No Orthopnea, No Paroxysmal Noc. Dyspnea, No Edema, No Lt Headedness, No Other Respiratory: No Cough, No Dry, No Shortness of breath, No SOB with excertion, No Wheezing, No Hemoptysis, No Pleuritic Pain, No Sputum, No Other Gastrointestinal: No Nausea, No Vomiting, No Abdominal Pain, No Diarrhea, No Constipation, No Melena, No Hematochezia, No Other Genitourinary: No Dysuria, No Frequency, No Incontinence; Hematuria; No Retention; Other (Vaginal bleed) Musculoskeletal: No other, No neck pain, No shoulder pain, No arm pain, No back pain, No hand pain, No leg pain, No foot pain Skin: No Rash, No Lesions, No Jaundice, No Bruising, No Other Objective Vitals Vital Signs Date Time Temp Pulse Resp B/P (MAP) Pulse Ox O2 Delivery O2 Flow Rate FiO2 05/22/25 08:00 100 Room Air* 0 21 05/22/25 05:00 97.7 67 17 118/76 (90) 97.7 Intake/Output Intake and Output 05/22/25 07:00 Intake Total 1050 ml Balance 1050 ml Intake Oral 950 ml IV Total 100 ml # Voids 5 # Bowel Movements 1 Medications Current Medications Medications Dose Ordered Sig/Yg Route Start Time Stop Time Status Last Admin Dose Admin Sodium Chloride 10 ml Q8HR IV 05/18/25 14:00 05/22/25 05:14 10 ML Ondansetron HCl 4 mg Q4HP PRN IV 05/18/25 14:00 05/18/25 20:38 4 MG Docusate Sodium 100 mg BIDPRN PRN PO 05/18/25 14:00 05/21/25 00:21 100 MG Acetaminophen 650 mg Q6HP PRN PO 05/18/25 14:00 05/19/25 10:27 650 MG Nitroglycerin 0.4 mg Q5MINP PRN SL 05/18/25 14:15 Morphine Sulfate 2 mg [id number] PRN IV 05/18/25 20:30 05/20/25 05:31 2 MG Melatonin 5 mg HSPRN PRN PO 05/19/25 22:00 05/21/25 20:39 5 MG Morphine Sulfate 2 mg Q4HPRN PRN IV 05/19/25 14:30 05/21/25 20:40 2 MG Patient Own Medication 1 DAILYPRN PRN PO 05/19/25 14:30 Patient Own Medication 60 mg DAILY PO 05/19/25 23:00 05/21/25 12:12 60 MG Sodium Chloride 1,000 ml @ 100 mls/hr Q10H IV 05/19/25 17:30 05/22/25 05:14 100 MLS/HR Dexamethasone Sodium Phosphate 10 mg/Dextrose 51 ml @ 204 mls/hr DAILY IV 05/20/25 10:00 05/21/25 10:30 204 MLS/HR Metoclopramide HCl 15 mg Q8HR PO 05/19/25 22:00 05/22/25 05:01 15 MG Oxycodone/ Acetaminophen 1 tab Q4HP PRN PO 05/20/25 14:45 05/20/25 17:22 1 TAB Tramadol HCl 50 mg TIDPRN PRN PO 05/20/25 20:45 05/22/25 00:40 50 MG Ceftriaxone Sodium 50 ml @ 100 mls/hr DAILY@09 IV 05/22/25 09:00 05/22/25 09:06 100 MLS/HR Metronidazole 100 ml @ 100 mls/hr Q8HR IV 05/21/25 22:00 05/22/25 05:01 100 MLS/HR Laboratory Results Laboratory Tests 05/19/25 05:06 Urinalysis Test 05/18/25 03:57 Urine Color Light-yellow (Yellow) Urine Clarity Clear (Clear) Urine pH 6.5 (5.0-9.0) Urine Specific [place] 1.020 (1.001-1.035) Urine Protein Negative (Negative) Urine Ketones Negative (Negative) Urine Blood 3+ /uL (Negative) H Urine Nitrite Negative (Negative) Urine Bilirubin Negative (Negative) Urine Urobilinogen Normal mg/dL (Negative) Urine Leukocyte Esterase Negative /uL (Negative) Urine RBC 104 /hpf (0 - 4) Urine Microscopic WBC 1 /HPF (0-5) Urine Squamous Epithelial Cells Few /hpf (<5) Urine Bacteria None seen /hpf (None Seen) Urine Glucose Normal mg/dL (Normal) Urine Test Negative (Negative) Labs and/or images reviewed: Labs reviewed by me, Image(s) reviewed by me Assessment/Plan Assessment/Plan 1. Acute symptomatic anemia hemoglobin 12.0 2. Vaginal bleeding: Dr Eduardo advised the patient to follow up with her care manager 3. Chronic MIGRAINE HEADACHES 4. LEFT LOWER QUADRANT ABDOMINAL PAIN test negative CT abdomen pelvis without contrast negative Pelvic ultrasound negative for any acute pathology, repeat pelvic ultrasound also neg MRI of the abdomen negative for any acute pathology, GI consult by Dr. Khanh Herndon appreciated who felt the patient pain left lower quadrant possibly related to dysmenorrhea SOPHIE Schafer at bedside Patient feels better and wants to go home Plan discussed with: Patient My Orders Orders - STEPH GONZALEZ MD Procedure Category Date Status Time Ceftriaxone 1gm/50ml PHA 05/22/25 In Process (Rocephin) 09:00 Metronidazole PHA 05/21/25 In Process 500mg/100ml (Flagyl 22:00 Mri Abdomen No MRI 05/21/25 Resulted Contrast 15:09 * [facility]ut[facility] Helper CONS 05/21/25 Transmitted 15:11 Date of Service: May 22, 2025 Billing Provider: STEPH GONZALEZ MD Common Visit Codes: [id number] INP/OBS CARE(HIGH) STEPH GONZALEZ MD May 22, 2025 09:24
--- NOTE | 2025-05-22 09:28 | DVHDS2 ---
Discharge Summary Date of Admission May 18, 2025 at 14:06 Date of Discharge: May 22, 2025 Admitting Diagnosis Vaginal bleeding left lower quadrant abdominal pain Wounds: None Labs/Diagnostic Data: Laboratory Results Test 05/19/25 05:06 05/18/25 13:56 05/18/25 03:57 05/18/25 02:39 White Blood Count 5.2 10^3/uL (4.4-10.8) Red Blood Count 4.32 10^6/uL (4.0-5.20) Hemoglobin 11.8 g/dL (12.2-16.2) Hematocrit 36.0 % (36.0-46.0) Mean Corpuscular Volume 83.3 fL (80.0-100.0) Mean Corpuscular Hemoglobin 27.3 pg (28.0-32.0) Mean Corpuscular Hemoglobin Concent 32.8 g/dL (32.0-36.0) Red Cell Distribution Width 15.4 % (11.8-14.3) Platelet Count 270 10^3/uL (140-450) Mean Platelet Volume 7.5 fL (6.9-10.8) Neutrophils (%) (Auto) 52.4 % (37.0-80.0) Lymphocytes (%) (Auto) 35.4 % (10.0-50.0) Monocytes (%) (Auto) 9.7 % (0.0-12.0) Eosinophils (%) (Auto) 2.2 % (0.0-7.0) Basophils (%) (Auto) 0.3 % (0.0-2.0) Neutrophils # (Auto) 2.7 10 ^3/uL (1.6-8.6) Lymphocytes # (Auto) 1.9 10 ^3/uL (0.4-5.4) Monocytes # (Auto) 0.5 10 ^3/uL (0-1.3) Eosinophils # (Auto) 0.1 10 ^3/uL (0-0.8) Basophils # (Auto) 0 10 ^3/uL (0-0.2) Nucleated Red Blood Cells 0.1 % Sodium Level 142 mmol/L (136-145) Potassium Level 4.1 mmol/L (3.5-5.1) Chloride Level 104 mmol/L (98-107) Carbon Dioxide Level 28 mmol/L (20-31) Anion Gap 10 (5-15) Blood Urea Nitrogen 9 mg/dL (9-23) Creatinine 0.66 mg/dL (0.550-1.02) Glomerular Filtration Rate Calc 117 mL/min (>90) BUN/Creatinine Ratio 13.6 (10.0-20.0) Serum Glucose 97 mg/dL (74-106) Calcium Level 9.8 mg/dL (8.7-10.4) Total Bilirubin 0.9 mg/dL (0.2-1.0) Aspartate Amino Transferase (AST) 15 U/L (13-40) Alanine Aminotransferase (ALT) 21 U/L (7-40) Alkaline Phosphatase 71 U/L (46-116) Total Protein 6.2 g/dL (5.7-8.2) Albumin 4.0 g/dL (3.2-4.8) Hepatitis B Surface Antigen Negative (Negative) Hepatitis C Antibody Negative (Negative) Prothrombin Time 10.9 sec (9.3-11.8) Prothrombin Time INR 1.03 (0.9-1.15) Activated Partial Thromboplast Time 29.7 SEC (24.5-34.5) Urine Color Light-yellow (Yellow) Urine Clarity Clear (Clear) Urine pH 6.5 (5.0-9.0) Urine Specific [place] 1.020 (1.001-1.035) Urine Protein Negative (Negative) Urine Ketones Negative (Negative) Urine Blood 3+ /uL (Negative) Urine Nitrite Negative (Negative) Urine Bilirubin Negative (Negative) Urine Urobilinogen Normal mg/dL (Negative) Urine Leukocyte Esterase Negative /uL (Negative) Urine RBC 104 /hpf (0 - 4) Urine Microscopic WBC 1 /HPF (0-5) Urine Squamous Epithelial Cells Few /hpf (<5) Urine Bacteria None seen /hpf (None Seen) Urine Glucose Normal mg/dL (Normal) Urine Test Negative (Negative) Magnesium Level 2.1 mg/dL (1.6-2.6) Other Laboratory Tests 05/19/25 05:06 Brief Hx & Hospital Course: 34-year-old female came in complaining of vaginal bleeding and left lower quadrant abdominal pain hemoglobin 12.0. Seen by shade cutter Dr. Delcid advised outpatient follow up with her tailor helper CT abdomen pelvis without contrast negative MRI abdomen without contrast is also negative pelvic ultrasound negative for any acute pathology repeat pelvic ultrasound was also negative patient was treated with the Levaquin and Flagyl for possible diverticulitis seen by GI Dr. Khanh Herndon who felt the patient's pain is because of dysmenorrhea. The patient feels better and being discharged home. Prescription for Levaquin Flagyl and Bentyl transmitted to pharmacy. ruled out. She was advised to follow up with the tailor helper for further care. Consults/Reason for consult GI Dr. Khanh Herndon Gynecology Dr. Eduardo Operations or Procedures CT abdomen pelvis without contrast MRI abdomen without contrast Pelvic ultrasound Condition at Discharge: Fair Final Diagnosis/Problems List 1. Acute symptomatic anemia hemoglobin 12.0 2. Vaginal bleeding: Dr Eduardo advised the patient to follow up with her tailor helper 3. Chronic MIGRAINE HEADACHES 4. LEFT LOWER QUADRANT ABDOMINAL PAIN test negative CT abdomen pelvis without contrast negative Pelvic ultrasound negative for any acute pathology, repeat pelvic ultrasound also neg MRI of the abdomen negative for any acute pathology, GI consult by Dr. Khanh Herndon appreciated who felt the patient pain left lower quadrant possibly related to dysmenorrhea Discharge Disposition: Home Discharge Instruct/Medications Diet: Regular Activity: Light activity Follow Up/Referral: Follow up with the tailor helper through primary Dr for dysmenorrhea and vaginal bleeding Medications: Bentyl Levaquin Flagyl Scheduled Levofloxacin Hemihydrate (Levaquin 500 Mg), 1 TAB PO DAILY Metronidazole (Flagyl), 1 TAB PO TID Prednisone (Prednisone), 40 MG PO DAILY Tramadol HCl (Tramadol HCl), 50 MG PO BID Scheduled PRN Dicyclomine Hcl (Bentyl Capsule), 1 CAP PO TID PRN Miscellaneous Medications Ubrogepant (Ubrelvy), 100 MG PO, (Reported) 35 (Time taken for discharge summary 35 minutes) Discharge Statement: "Patient was advised to return to the ER or call 911 if any headaches, dizziness, shortness of breath, chest pain, abdominal pain, bleeding, fevers, or worsening of medical condition. Patient was counseled about treatment plan, medications, possible side effects, patientverbalized understanding. All questions were answered to the best of my ability. This discharge took greater then 30 minutes in planning, reviewing documentation, counseling the patient, and discussing with other team members." ASSESSMENT ASSESSMENT Hospital Course Improved Assessment 1. Acute symptomatic anemia hemoglobin 12.0 2. Vaginal bleeding: Dr Eduardo advised the patient to follow up with her tailor helper 3. Chronic MIGRAINE HEADACHES 4. LEFT LOWER QUADRANT ABDOMINAL PAIN test negative CT abdomen pelvis without contrast negative Pelvic ultrasound negative for any acute pathology, repeat pelvic ultrasound also neg MRI of the abdomen negative for any acute pathology, GI consult by Dr. Khanh Herndon appreciated who felt the patient pain left lower quadrant possibly related to dysmenorrhea Date of Service: May 22, 2025 Billing Provider: STEPH GONZALEZ MD Common Visit Codes: [id number]/[id number] DISCH DAY >30min STEPH GONZALEZ MD May 22, 2025 09:28
[2025-05-22 11:45] VITALS: TEMP 36.8
[2025-05-22 13:00] VITALS: BP 100/62; PULSE 70; RESP 19; TEMP 98.5; O2SAT 95
== END 2025-05-22 15:39 | disposition home or self-care (01) | DRG 244 ==
LOC: ER 02:24 → OVERFLOW 14:06 → TELE-CENTR 21:45
PROVIDERS: ADMIT Family Medicine; ATTEND Family Medicine
DX: K57.32 Diverticulitis of large intestine without perforation or abscess without bleeding (principal); D64.9 Anemia, unspecified; J45.909 Unspecified asthma, uncomplicated; F32.A Depression, unspecified; N94.6 Dysmenorrhea, unspecified; N93.9 Abnormal uterine and vaginal bleeding, unspecified; G43.101 Migraine with aura, not intractable, with status migrainosus; G43.B0 Ophthalmoplegic migraine, not intractable; G44.59 Other complicated headache syndrome; Z83.3 Family history of diabetes mellitus; Z81.8 Family history of other mental and behavioral disorders; Z83.438 Family history of other disorder of lipoprotein metabolism and other lipidemia
CPT/HCPCS: 36415; 74176; 74181; 76830; 76856; 80048; 80053; 81001; 81025; 83735; 85025; 85610; 85730; 86803; 87340; 96372; 96374; 96375; G0378; J1100; J1885; J2405; J3490; J7060